=== PATIENT | male | born 1980 | race African-American/Black ===

== ENCOUNTER 2025-01-21 18:47 | Inpatient (IN) | payer OTHER, SELFPAY ==
[2025-01-21] VITALS (11 sets, daily range): BP systolic 154–225; BP diastolic 112–162; PULSE 75–95; RESP 16–20; TEMP 36.3; O2SAT 95–97; BMI 55.4
--- NOTE | ~2025-01-21 | XR_ITS ---
CHEST RADIOGRAPH, PA AND LATERAL CLINICAL HISTORY: cough, HTN . COMPARISON: None available TECHNIQUE: PA and lateral views of the chest. FINDINGS The cardiomediastinal silhouette is unremarkable. Increased interstitial markings are identified bilaterally, findings suggesting mild pulmonary vascul ar congestion. The lungs are otherwise clear. IMPRESSION: Mild pulmonary vascular congestion, without focal infiltrate or effusion. Reviewed, dictated and finalized at location A.
--- NOTE | ~2025-01-21 | US_ITS ---
EXAMINATION: US renal BI, US retroperitoneal duplex ltd DATE: 01/23/2025 09:30 INDICATION: Kidney injury. Criteria. Malignant hypertension. TECHNIQUE: 1. Multiple grayscale and color Doppler images of the kidneys were obtained. 2. Multiple grayscale and pulsed Doppler images of the aorta and renal arteries were obtained. COMPARISON: None. FINDINGS: Kidneys: The right kidney measures 11.5 x 4.7 x 5.9 cm. The left kidney measures 11.2 x 5.9 x 6.3 cm. The kidn eys demonstrate normal echogenicity. There is no hydronephrosis in either kidney. No stones identifi ed. The bladder is normal. Renal arteries/vascular: The aorta peak systolic velocity is 51 cm/s. The right renal artery peak systolic velocity is 26 cm/s in the proximal segment, 46 cm/s in the mid segment, and 36 cm/s in the distal segment. The left joanne al artery peak systolic velocity is 52 cm/s in the proximal segment, 20 cm/s in the mid segment, and 19 cm/s in the distal segment. IMPRESSION: 1. Normal kidneys with no hydronephrosis. 2. No Doppler evidence of renal artery stenosis. Reviewed, dictated and finalized at location A. IMPRESSION: 1. Normal kidneys with no hydronephrosis. 2. No Doppler evidence of renal artery stenosis.
--- NOTE | ~2025-01-21 | XR_ITS ---
EXAMINATION: XR chest 1V portable DATE: 01/23/2025 05:41 INDICATION: Shortness of breath. Pulmonary edema. TECHNIQUE: frontal view of the chest was obtained. COMPARISON: Chest radiograph dated 01/21/2025 FINDINGS: The lungs are clear with no focal airspace opacities, pulmonary edema, pleural effusion or pneumothor ax. The cardiomediastinal silhouette is normal. IMPRESSION: 1. No acute cardiopulmonary disease. Reviewed, dictated and finalized at location A.
--- OUTSIDE RECORDS SUMMARY | 2025-01-21 18:49 | XMS_ITS | Clinical Summary ---
Author Organization [facility] ([facility]) [employer] [place] Address [address] [place] [address] [place] [address] Care Team Providers Care Survey Project Manager Name Role Phone Unavailable Primary Care Provider Unavailabl e Active Problems No known active problems Family History Medical History Relation Name Comments Healthy Father Juan C Madison Healthy Mother Shweta Madison Healthy Sister 1 Renato Madison Healthy Sister 2 Clarita Madison Relation Name Status Comments Father Juan C Madison Mother Shweta Madison Sister 1 Renato Madison Sister 2 Clarita Madison Social History Tobacco Use Types Packs/Day Years Used Date Smoking Tobacco: Former Cigarettes 0.3 5 0 11/03/2009 - 11/03/2014 Tobacco Cessation:Counseling Given: Not Answered Alcohol Use Standard Drinks/Week Comments Yes 21 (1 standard drink = 0.6 oz pu re alcohol) Sex and Gender Information Value Date Recorded Sex Assigned at Not on file Legal Sex Male 3:44 PM CDT Gender Identity Not on file Sexual Orientation Not on file Last Filed Vital Signs Vital Sign Reading Time Taken Comments Blood Pressure 176/110 01/25/2023 1:19 PM CDT Pulse 60 11/29/2017 1:56 PM CDT Temperature - - Respiratory Rate - - Oxygen Saturation - - Inhaled Oxygen Concentration - - Weight 171.5 kg (378 lb) 01/25/2023 1:19 PM CDT Height 172.7 cm (5' 8) 01/25/2023 1:19 PM CDT Body Mass Index 57.47 01/25/2023 1:19 PM CDT Plan of Treatment Health Maintenance Due Date Last Done Comments DTAP/TDAP/TD VACCINES (1 - Tdap) 2001 HEPATITIS B VACCINES (1 of 3 - 19+ 3-dose series) 2001 INFLUENZA VACCINE (#1) 2024 HPV VACCINES Aged Out No longer eligi ble based on patient's age to complete this topic Insurance ALLEGIANCE OPEN ACCESS * Guarantor: [employer] Account Type Relation to Patient Date of Phone Billing Address Corporate Employer ATTN: KASI NEAL [address] [address]
--- NOTE | 2025-01-21 19:23 | ECG_ITS ---
Test Date: 2025-01-21 19:42:01 Measurements Intervals [place] Rate: 86 P: 34 VA: 200 QRS: -38 QRSD: 112 T: 143 QT: 356 QTc: 428 Interpretive Statements SINUS RHYTHM LEFT AXIS DEVIATION POSSIBLE LEFT ATRIAL ENLARGEMENT BORDERLINE AV CONDUCTION DELAY INTRAVENTRICULAR CONDUCTION DELAY BORDERLINE R WAVE PROGRESSION, ANTERIOR LEADS NONSPECIFIC ST & T-WAVE ABNORMALITY- LAT/HIGH LAT LEADS BASELINE ARTIFACT- I, III, AVR, AVL, V5 BORDERLINE ECG No previous ECG available for comparison Electronically Signed On 01-21-2025 20:17:19 CDT by Damion Bennett D.O.
[2025-01-21] MEDS: hydrALAZINE HCL 20 MG/ML VIAL 10 MG IV PUSH (19:39)
[2025-01-21 19:44] LABS: Basophils Absolute Auto 0.1 K/mm3 (0.0-0.1); Basophils Percent Auto 0.6 % (0.2-1.2); Eosinophils Absolute Auto 0.2 K/mm3 (0-0.3); Eosinophils Percent Auto 2.3 % (0-4.4); Hematocrit 40.5 % (42.0-52.0); Hemoglobin 12.4 g/dL (14.0-18.0); Lymphocytes Absolute Auto 2.39 K/mm3 (0.9-3.2); Lymphocytes Percent Auto 24.5 % (18.3-44.2); Mean Corpuscular HGB Conc 30.6 g/dl (32-36); Mean Corpuscular Hemoglobin 23.4 pg (26-34); Mean Corpuscular Volume 76.3 fl (80-100); Mean Platelet Volume 10.7 fl (7.4-10.4); Monocytes Absolute Auto 0.6 K/mm3 (0.1-0.6); Neutrophils Absolute Auto 6.4 K/mm3 (1.3-6.7); Neutrophils Percent Auto 65.6 % (45.5-73.1); Platelet Count Result 246 k/mm3 (150-375); Red Blood Count 5.31 M/mm3 (4.6-6.20); Red Cell Distribution Width 15.9 % (11.5-14.5); White Blood Count 9.8 K/mm3 (4.5-10.0)
[2025-01-21 19:56] LABS: Alanine Aminotransferase 17 U/L (6-50); Alkaline Phosphatase 82 U/L (38-126); Anion Gap 7 mmol/L (4-12); Aspartate Amino Transferase 28 U/L (17-59); Bilirubin,Total 0.8 mg/dL (0.2-1.3); Blood Urea Nitrogen 28 mg/dL (9-20); Calcium 9.2 mg/dL (8.4-10.2); Carbon Dioxide 28 mmol/L (22-30); Chloride 104 mmol/L (98-107); Estimated CRCL calculation 63 ml/min; Estimated Glomerular Filt Rate 34; Glucose 107 mg/dL (65-110); Magnesium 1.8 mg/dL (1.6-2.3); Potassium 3.7 mmol/L (3.4-5.0); Sodium 139 mmol/L (137-145); Total Protein 7.5 g/dL (6.3-8.2)
--- NOTE | 2025-01-21 19:58 | ED_ITS ---
HPI - General Adult General Chief complaint: Recheck/Abnormal Lab/Rx Stated complaint: coughing, HTN, BP 190/130 Time Seen by Provider: 01/21/25 19:05 History of Present Illness HPI narrative: Patient is a 44-year-old gentleman presents emergency department with chief complaint of cough and high blood pressure. Patient reports that he has been out of his blood pressure medicines for several weeks takes amlodipine and reports that his prescription had . Patient states that he was seen at urgent care and told that his blood pressure was extremely high and he should go to the emergency department patient did report that they gave him prescription for his blood pressure medicine and reports that he has had some shortness of breath. Patient denies chest pain denies peripheral edema Related Data Home Medications ?Medication ?Instructions ?Recorded ?Confirmed ?Last Taken ?Type amlodipine 10 mg tablet mg 01/21/25 Unknown History doxycycline hyclate 100 mg capsule mg 01/21/25 Unknown History Allergies Allergy/AdvReac Type Severity Reaction Status Date / Time No Known Allergies Allergy Verified 01/21/25 19:31 Review of Systems 2 Review of Systems: A 10 system review of systems was completed on the patient and is negative except for what is stated in the HPI. Nursing and ancillary documentation was reviewed. Exam 2 Narrative: GENERAL: Well-appearing, well-nourished, and in no acute distress. Morbidly obese HEAD: Normocephalic, atraumatic. EYES: PERRLA and EOMI. ENT: Nares clear, no rhinorrhea or epistaxis. Mucous membranes moist. NECK: Supple. CHEST: Clear to auscultation. No respiratory distress. HEART: Regular rate and rhythm. No murmur heard. Normal peripheral pulses. ABDOMEN: Soft, nontender, nondistended, normal active bowel sounds. EXTREMITIES: Normal range of motion. No edema. SKIN: Warm, dry, no rash. NEURO: No focal deficits. Alert and oriented x3. PSYCH: Normal mood and affect. Course Vital Signs Vital signs: Vital Signs Temperature 36.3 C L 01/21/25 18:50 Pulse Rate 95 01/21/25 18:50 Respiratory Rate 16 01/21/25 18:50 Blood Pressure 154/112 H 01/21/25 18:50 Pulse Oximetry 96 01/21/25 18:50 Oxygen Delivery Room Air 01/21/25 18:50 Temperature 36.3 C L 01/21/25 18:50 Pulse Rate 77 01/21/25 21:39 Respiratory Rate 20 01/21/25 21:39 Blood Pressure 189/126 H 01/21/25 21:39 Pulse Oximetry 95 01/21/25 21:39 Oxygen Delivery Room Air 01/21/25 18:50 Medical Decision Making Vital Signs Vital Signs: Vital Signs Temperature 36.3 C L 01/21/25 18:50 Pulse Rate 95 01/21/25 18:50 Respiratory Rate 16 01/21/25 18:50 Blood Pressure 154/112 H 01/21/25 18:50 Pulse Oximetry 96 01/21/25 18:50 Oxygen Delivery Room Air 01/21/25 18:50 Temperature 36.3 C L 01/21/25 18:50 Pulse Rate 77 01/21/25 21:39 Respiratory Rate 20 01/21/25 21:39 Blood Pressure 189/126 H 01/21/25 21:39 Pulse Oximetry 95 01/21/25 21:39 Oxygen Delivery Room Air 01/21/25 18:50 Lab Data 01/21/25 19:37 01/21/25 19:37 Labs: Lab Results 01/21/25 01/21/25 Range/Units 19:37 20:28 WBC 9.8 (4.5-10.0) K/mm3 RBC 5.31 (4.6-6.20) M/mm3 Hgb 12.4 L (14.0-18.0) g/dL Hct 40.5 L (42.0-52.0) % MCV 76.3 L (80-100) fl MCH 23.4 L (26-34) pg MCHC 30.6 L (32-36) g/dl RDW 15.9 H (11.5-14.5) % Plt Count 246 (150-375) k/mm3 MPV 10.7 H (7.4-10.4) fl Immature Gran % (Auto) 1.0 H (0-0.5) % Neut % (Auto) 65.6 (45.5-73.1) % Lymph % (Auto) 24.5 (18.3-44.2) % Woodruff % (Auto) 6.0 (2.6-8.5) % Eos % (Auto) 2.3 (0-4.4) % Baso % (Auto) 0.6 (0.2-1.2) % Lymph # (Auto) 2.39 (0.9-3.2) K/mm3 Woodruff # (Auto) 0.6 (0.1-0.6) K/mm3 Eos # (Auto) 0.2 (0-0.3) K/mm3 Baso # (Auto) 0.1 (0.0-0.1) K/mm3 Abs Immat Gran (auto) 0.10 H (0.00-0.031) K/mm3 Absolute Neuts (auto) 6.4 (1.3-6.7) K/mm3 Absolute Nucleated RBC 0.000 (0.0-0.012) K/mm3 Nucleated RBC % 0.0 (0.0-0.2) % Sodium 139 (137-145) mmol/L Potassium 3.7 (3.4-5.0) mmol/L Chloride 104 (98-107) mmol/L Carbon Dioxide 28 (22-30) mmol/L Anion Gap 7 (4-12) mmol/L BUN 28 H (9-20) mg/dL Creatinine 2.12 H (0.7-1.3) mg/dL Estim Creat Clear Calc 63 ml/min Estimated GFR 34 L (59 - ) Glucose 107 (65-110) mg/dL Calcium 9.2 (8.4-10.2) mg/dL Magnesium 1.8 (1.6-2.3) mg/dL Total Bilirubin 0.8 (0.2-1.3) mg/dL AST 28 (17-59) U/L ALT 17 (6-50) U/L Alkaline Phosphatase 82 (38-126) U/L Troponin I 0.100 H* (0.000-0.034) ng/mL NT-Pro-B Natriuret Pep 4110 H (19.9-100) pg/mL Total Protein 7.5 (6.3-8.2) g/dL Albumin 4.0 (3.5-5.1) g/dL Urine Color Yellow (Yellow) Urine Appearance Clear (Clear) Urine pH 6.0 (5.0-9.0) Ur Specific [place] 1.022 (1.001-1.035) Urine Protein 3+ H (Negative) mg/dL Urine Glucose (UA) Negative (Negative) mg/dL Urine Ketones Negative (Negative) mg/dL Ur Blood (Man) Negative (Negative) Urine Nitrate Negative (Negative) Urine Bilirubin Negative (Negative) Urine Urobilinogen 1.0 (<2.0) mg/dL Leukocyte Esterase Rfl Negative (Negative) CATHERINE/UL Urine RBC 0-2 (0-2) /hpf Urine WBC 0-5 (0-3) /hpf Ur Squamous Epith Cells None seen (Few) /hpf Urine Bacteria None seen /hpf Urine Casts 0-2 Influenza A (RT-PCR) Negative (Negative) Influenza B (RT-PCR) Negative (Negative) RSV (RT-PCR) Negative (Negative) SARS-CoV-2 RNA (RT-PCR) Negative (Negative) Critical Care Time Critical Care Time Critical Care Time: Yes Total Critical Care Time: 35 Discharge Plan Discharge Clinical Impression: Hypertension, Renal insufficiency, Elevated troponin Patient Disposition: Still a Patient Condition: Stable Patient Language: Danish Prescriptions: No Action doxycycline hyclate 100 mg capsule amlodipine 10 mg tablet Follow-up/Referrals: PHYSICIAN NOT ON STAFF,NONSTAFF [Non-Staff] - Time of Disposition: 22:37
[2025-01-21 20:11] LABS: NT Pro B Type Natriuretic Pept 4110 pg/mL (19.9-100)
[2025-01-21 20:20] LABS: Influenza A QL RT-PCR Negative (Negative); Influenza B QL RT-PCR Negative (Negative); RSV RNA, RT-PCR Negative (Negative); SARS-CoV-2 RNA PCR Negative (Negative)
[2025-01-21 20:36] LABS: Add Urine Microscopic? YES; Appearance Urine Clear (Clear); Bacteria Urine None Seen /hpf; Bilirubin Urine Negative (Negative); Blood Urine Negative (Negative); Color Urine Yellow (Yellow); Glucose Urine UA Negative (Negative); Ketones Urine Negative (Negative); Leukocyte Esterase Ur Negative LEU/UL (Negative); Nitrate Urine Negative (Negative); Non Pathogenic Casts 0-2; Protein Urine 3+ mg/dL (Negative); RBC Urine 0-2 /hpf (0-2); Specific Grav Ur 1.022 (1.001-1.035); Squamous Epithelial Cell Urine None Seen /hpf (Few); WBC Urine 0-5 /hpf (0-3)
--- OUTSIDE RECORDS SUMMARY | 2025-01-21 20:46 | XMS_ITS | Clinical Summary ---
Author Organization [facility] [employer] [place] Address [address] [place] [address] [place] [facility] [address] Care Team Providers Care Crochet Beader Name Role Phone Unavailable Primary Care Provider [...] Insurance ALLEGIANCE OPEN ACCESS * Guarantor: O[employer] Account Type Relation to Patient Date of Phone Billing Address Corporate Employer ATTN: KASI NEAL [address] [address]
[2025-01-21] MEDS: ASPIRIN 81 MG CHEWABLE TABLET 324 MG PO (21:11)
[2025-01-21] MEDS: NITROGLYCERIN OINTMENT 1 INCH DOSE TRANSDERM (21:28)
[2025-01-21] MEDS: FUROSEMIDE INJ 40 MG/4 ML VIAL IV PUSH (21:28)
[2025-01-21] MEDS: LABETALOL HCL INJ 100 MG/20 ML VIAL 20 MG IV PUSH (21:28)
--- NOTE | 2025-01-21 22:45 | ECG_ITS ---
Test Date: 2025-01-21 22:54:35 Measurements Intervals [place] Rate: 76 P: 28 HI: 204 QRS: -40 QRSD: 109 T: 145 QT: 385 QTc: 433 Interpretive Statements SINUS RHYTHM LEFT AXIS DEVIATION POSSIBLE LEFT ATRIAL ENLARGEMENT BORDERLINE AV CONDUCTION DELAY BORDERLINE R WAVE PROGRESSION, ANTERIOR LEADS MODERATE T-WAVE ABNORMALITY, CONSIDER ANTEROLAT/HIGH LAT ISCHEMIA BASELINE ARTIFACT- I, AVR, AVL ABNORMAL ECG Compared to ECG 01/21/2025 19:42:01 T-wave abnormality now present Possible ischemia now present Electronically Signed On 01-22-2025 07:08:54 CDT by Damion Bennett D.O.
[2025-01-21] MEDS: niCARdipine 20 MG/200 ML 20 MG/200 ML BAG 50 MG IV CONT (22:58)
[2025-01-21 23:23] LABS: Troponin I 0.111 ng/mL (0.000-0.034)
--- NOTE | 2025-01-21 23:32 | PC.NURSE ---
Report received from LARA Fonseca.
[2025-01-22] VITALS (29 sets, daily range): BP systolic 133–215; BP diastolic 70–187; PULSE 46–99; RESP 12–25; TEMP 36.3–36.8; O2SAT 92–100
--- NOTE | 2025-01-22 00:06 | ADMGEN ---
This patient, Charles Madison, was admitted to Intensive Care Unit-9 on 01/21/25 at 2347. Patient/family oriented to hospital policies and general routines including ID bracelet, bed and alarms, visiting hours, pain management, procedures, bathroom and other care routines, personal items, smoking policy, room service/diet, and visiting hours. Information on how to activate the Rapid Response Team has been discussed. Patient/Family are encouraged to report perceived risks to care and to ask questions if they do not understand what they are told or what they should do.
[2025-01-22 00:10] LABS: MRSA (PCR) NOT DETECTED (NOT DETECTE)
[2025-01-22] MEDS: NITROGLYCERIN OINTMENT 1 INCH DOSE TRANSDERM (00:36)
--- NOTE | 2025-01-22 01:25 | PM.IMHP ---
H&P: HPI History of Present Illness Date/Time: 01/22/25 01:25 Chief Complaint: Cough and elevated blood pressure at [facility] Narrative: 44-year-old male with a past medical history of morbid obesity, essential hypertension and nonadherence to medication therapy who presented to the ER from [facility] for evaluation of dry cough and markedly elevated blood pressure at urgent care. The patient reports that he has been out of medications for ?a few weeks?. On review the patient's external medication records from pharmacy the patient has not had refill of his metoprolol, losartan, Lasix or amlodipine since March 26, 2024 at which time he had a 30 day supply filled. On arrival to the ER the patient's blood pressures were 217/150s. Patient denies any chest pain or lower extremity swelling. He has been having dyspnea on exertion and orthopnea. He he also reports paroxysmal nocturnal dyspnea and a dry cough at all started about 6 weeks ago. He does snore quite loudly and since admission to the ICU is been noted to have episodes of hypoxia with sleep. He has noticed that his abdomen is felt tighter than usual. He has had a dry nonproductive cough. He reports that his cough dyspnea and orthopnea all started about the same time. He reports that his losartan was discontinued shortly after was started due to his renal function. He reports that 1 of the other blood pressure medications was stopped due to leg swelling. She he states that even with being on multiple blood pressure medications in the past his blood pressures are usually still high. He stated that he does not check his blood pressures all that frequently but when he does check them as they are usually in the 180s systolic range. He does not weigh is self frequently but his weight is at least up 10 lb between his last to episodes weight checks. He is relatively sedentary at baseline. In the ER patient received hydralazine with no real improvement in his blood pressure. He subsequently received 40 mg IV Lasix, labetalol 20 mg IV push and transdermal nitroglycerin 1 in with improvement in blood pressures to 199 over 133. Subsequently patient was placed on a Cardene drip and admitted to ICU for hypertensive urgency given the fact that the patient had evidence of acute versus acute on chronic kidney injury, elevated troponin and pulmonary edema suggesting decompensated heart failure. Review of Systems Review of Systems: 12 systems were reviewed with pertinent positives and negatives per HPI. Except as documented in the HPI, all other systems were reviewed and are negative. [facility] Past Medical History Medical History (Updated 01/22/25 @ 01:44 by Sydni Palacios DO) Hyperlipidemia Gout Obesity, morbid, BMI 50 or higher Essential hypertension Surgical History Surgical History (Updated 01/22/25 @ 01:38 by Sydni Palacios DO) History of circumcision At age 12 Family History Family History Other Breast cancer Grandparent Cancer Social History Social History (Updated 01/22/25 @ 03:56 by Sydni Palacios DO) Social History: He lives with his Christiane. They have been for about 7 years but have been together for about 15 years. He briefly smoked for about 5 years 1 pack per week. His he denies any illicit substance use. He drinks about 4-5 alcoholic beverages on the weekend. He does not have any children. 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 Code status: Full code Surrogate decision maker: Christiane () Smoking status: Former smoker Second hand tobacco smoke exposure: Yes Alcohol intake: current Drinks per week: 5 Substance use: never Substance use type: does not use Do You Feel Safe in your Home?: Yes Lack of Transportation: YES Lack of Food: Sometimes True Current Housing: I Have Housing Concerned About Future Housing: No Difficulty Paying Gas/Electric Bills: No Difficulty Paying for Meds: No Currently Unemployed: No Education: Trade/Vocational Certificate Difficulty w/ Childcare or Family Care: No Spiritual care concerns: No Comments He reports that his parents and his 2 sisters are healthy. Meds Home Medications and Allergies Home Medications ?Medication ?Instructions ?Recorded ?Confirmed ?Type amlodipine 10 mg tablet mg 01/21/25 History doxycycline hyclate 100 mg capsule mg 01/21/25 History rosuvastatin 10 mg tablet mg 01/22/25 History Allergies Allergy/AdvReac Type Severity Reaction Status Date / Time No Known Allergies Allergy Verified 01/21/25 19:31 Vital Signs Vital Signs - 24 hr 01/21/25 18:50 01/21/25 19:26 01/21/25 19:48 Temperature 97.4 F L Pulse Rate 95 83 Respiratory Rate 16 16 Blood Pressure 154/112 H 217/153 H Pulse Oximetry 96 96 96 Oxygen Delivery Room Air 01/21/25 20:24 01/21/25 21:10 01/21/25 21:39 Temperature Pulse Rate 86 77 Respiratory Rate 20 20 Blood Pressure 215/162 H 225/145 H 189/126 H Pulse Oximetry 95 95 Oxygen Delivery 01/21/25 21:45 01/21/25 22:06 01/21/25 22:30 Temperature Pulse Rate 79 80 78 Respiratory Rate 18 19 16 Blood Pressure 194/138 H 196/138 H 180/141 H Pulse Oximetry 96 97 96 Oxygen Delivery 01/21/25 22:58 01/21/25 23:32 01/22/25 00:00 Temperature Pulse Rate 81 75 89 Respiratory Rate 16 Blood Pressure 199/133 H 188/127 H 173/114 H Pulse Oximetry 97 Oxygen Delivery 01/22/25 00:00 01/22/25 00:00 01/22/25 00:00 Temperature 98.2 F Pulse Rate 63 63 63 Respiratory Rate 12 12 Blood Pressure 173/114 H Pulse Oximetry 94 94 Oxygen Delivery Room Air 01/22/25 00:35 01/22/25 00:45 01/22/25 01:00 Temperature Pulse Rate 78 86 99 Respiratory Rate Blood Pressure 215/187 H 183/115 H 200/140 H Pulse Oximetry Oxygen Delivery 01/22/25 01:15 Temperature Pulse Rate 90 Respiratory Rate Blood Pressure 166/95 H Pulse Oximetry Oxygen Delivery Exam Narrative: Weight 165.3 kg BMI 55.4 Const: Other: No acute distress, morbidly obese, appears stated age HENMT: Other: Mucous membranes are moist, no oral pharyngeal erythema, last for ASA Eyes: Other: Pupils are equal and reactive, mild scleral icterus, no conjunctival pallor Neck: Other: No JVD, mild thyromegaly, large neck circumference Resp: Other: Crackles anterior lung green, no increased work of breathing Cardio: Other: Regular rate, regular rhythm, 2+ bilateral radial pedal pulses, no JVD, no murmur GI: Other: Soft, obese, normoactive bowel sounds, nontender Skin: Other: Tattoos covering both arms and is sleeve like fashion, no jaundice, no pallor Neuro: Other: Alert oriented x4, speech is clear, no facial asymmetry, no localizing neurologic deficits noted during the course of conversation Extrem: Other: No clubbing, cyanosis or edema Psych: Other: Pleasant and cooperative, appropriate mood and affect, fair judgment and insight H&P: Results Labs Labs: Laboratory Tests 01/21/25 19:37 01/21/25 19:37 01/21/25 01/21/25 01/21/25 19:37 20:28 22:53 WBC 9.8 RBC 5.31 Hgb 12.4 L Hct 40.5 L MCV 76.3 L MCH 23.4 L MCHC 30.6 L RDW 15.9 H Plt Count 246 MPV 10.7 H Immature Gran % (Auto) 1.0 H Neut % (Auto) 65.6 Lymph % (Auto) 24.5 Spencer % (Auto) 6.0 Eos % (Auto) 2.3 Baso % (Auto) 0.6 Lymph # (Auto) 2.39 Spencer # (Auto) 0.6 Eos # (Auto) 0.2 Baso # (Auto) 0.1 Abs Immat Gran (auto) 0.10 H Absolute Neuts (auto) 6.4 Absolute Nucleated RBC 0.000 Nucleated RBC % 0.0 Sodium 139 Potassium 3.7 Chloride 104 Carbon Dioxide 28 Anion Gap 7 BUN 28 H Creatinine 2.12 H Estim Creat Clear Calc 63 Estimated GFR 34 L Glucose 107 Calcium 9.2 Magnesium 1.8 Total Bilirubin 0.8 AST 28 ALT 17 Alkaline Phosphatase 82 Troponin I 0.100 H* 0.111 H* NT-Pro-B Natriuret Pep 4110 H Total Protein 7.5 Albumin 4.0 Urine Color Yellow Urine Appearance Clear Urine pH 6.0 Ur Specific [place] 1.022 Urine Protein 3+ H Urine Glucose (UA) Negative Urine Ketones Negative Ur Blood (Man) Negative Urine Nitrate Negative Urine Bilirubin Negative Urine Urobilinogen 1.0 Leukocyte Esterase Rfl Negative Urine RBC 0-2 Urine WBC 0-5 Ur Squamous Epith Cells None seen Urine Bacteria None seen Urine Casts 0-2 Nasal MRSA (PCR) Not detected Influenza A (RT-PCR) Negative Influenza B (RT-PCR) Negative RSV (RT-PCR) Negative SARS-CoV-2 RNA (RT-PCR) Negative Impressions Chest X-Ray 01/21/25 20:05 IMPRESSION: Mild pulmonary vascular congestion, without focal infiltrate or effusion. EKG: Normal sinus rhythm, possible left atrial enlargement, left axis deviation, moderate T-wave abnormality V3 through V6 consider anterior lateral ischemia, QTC 433, cardiology interpretation pending All imaging and EKGs personally reviewed and interpreted. And unless stated otherwise agree with radiologic and cardiology interpretation. Assessment and Plan Assessment and plan (1) Malignant hypertensive urgency: Code(s): I16.0 - Hypertensive urgency Status: Acute (2) Acute kidney injury: Code(s): N17.9 - Acute kidney failure, unspecified Status: Acute (3) Pulmonary vascular congestion: Code(s): R09.89 - Other specified symptoms and signs involving the circulatory and respiratory systems Status: Acute (4) Elevated troponin: Code(s): R79.89 - Other specified abnormal findings of blood chemistry Status: Acute (5) Proteinuria: Qualifiers: Proteinuria type: other Qualified Code(s): R80.8 - Other proteinuria Code(s): R80.9 - Proteinuria, unspecified Status: Acute (6) Obesity, morbid, BMI 50 or higher: Code(s): E66.01 - Morbid (severe) obesity due to excess calories Status: Acute Plan Patient has hypertensive urgency with associated pulmonary edema, cough and shortness of breath. This is likely due to chronically uncontrolled hypertension with increased hypertensive urgency with acute decompensation. Patient responded somewhat to nitroglycerin and IV Lopressor. Will continue transdermal nitroglycerin 1 in and will treat nitro associated headache with Tylenol. Will obtain echocardiogram to further evaluate cardiac structure and function. Will continue Lasix IV and monitor strict I&O's. Will check echocardiogram to further evaluate cardiac structure and function. Patient has been admitted to ICU for Cardene drip. Will aim to bring the patient's blood pressure down into his usual range of 180 systolic initially. Will start p.o. Norvasc 10 mg daily and Coreg 25 mg p.o. b.i.d. Systems Program Manager has been consulted. Patient does have elevated troponin but repeat troponin demonstrates flat profile again suggesting more of a chronic strain pattern in acute cardiac ischemia less likely. Although the patient does have evidence of anterior lateral T-wave abnormalities suggesting possible ischemia. Will place patient on 10 mg p.o. Norvasc daily as well as p.o. metoprolol. Will hold off on adding losartan until we can re-evaluate the patient's renal function. He does have some evidence of kidney injury. It is unclear if this is acute versus chronic. I am leaning more towards patient having some chronic kidney disease from uncontrolled hypertension given that his electrolytes are otherwise stable and the 3+ proteinuria in his urine. Will obtain renal ultrasound and monitor urine output closely. Given morbid obesity will screen for obstructive sleep apnea with [facility] as untreated obstructive sleep apnea could exacerbate the patient's hypertension and cardiac strain. Will check fasting lipid panel. Will repeat CBC and electrolyte panel with a.m. labs. Will trend troponins. Will start the patient on 81 mg aspirin daily. The importance of compliance with antihypertensive medications was discussed in great detail with the patient. Patient verbalized understanding. 45 minute spent in critical care activities. Due to a high probability of clinically significant, life threatening deterioration, the patient required my highest level of preparedness to intervene emergently and I personally spent this critical care time directly and personally managing the patient. This critical care time included obtaining a history; examining the patient; pulse oximetry; ordering and review of studies; arranging urgent treatment with development of a management plan; evaluation of patient's response to treatment; frequent reassessment; and discussions with other providers. It was exclusive of separately billable procedures and treating other patients and teaching time. Please see Assessment and Plan section and the rest of the note for further information on patient assessment and treatment.. MEDICAL DECISION MAKING NARRATIVE -Spoke with the ED provider in detail regarding patient's evaluation, workup and management -Patient seen and examined at bedside -Collaborated with patient's nurse at the bedside in detail and addressed all concerns -Labs, electrolytes, radiology, investigations and test results reviewed -ED/Consult/Nursing/Ancilliary notes on the chart reviewed and appreciated -Spoke with patient/family at the bedside and answered all questions. Quality VTE Prophylaxis VTE prophylaxis: pharmacologic ordered (Lovenox 40 mg subQ q.12 hours (twice daily dosing due to BMI greater than 40)) Hospitalist [facility] Advance Care Plan I have confirmed that the patient's Advanced Care Plan is present, code status is documented, or surrogate decision maker is listed in patient medical record.: Yes Medication Reconciliation I have utilized all available resources to obtain, update and review the patients current medications (includes all prescriptions, OTC, herbals, cannabis, and nutritional supplements).: Yes
--- OUTSIDE RECORDS SUMMARY | 2025-01-22 01:27 | XMS_ITS | Clinical Summary ---
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
[2025-01-22] MEDS: niCARdipine 20 MG/200 ML 20 MG/200 ML BAG 75 MG IV CONT (01:45)
[2025-01-22 03:24] LABS: Cholesterol 233 mg/dL (0-200); HDL Direct 30 mg/dL; LDL Cholesterol Direct 144 mg/dL; Triglycerides 141 mg/dL (<150); Troponin I 0.094 ng/mL (0.000-0.034)
[2025-01-22 04:07] LABS: Basophils Absolute Auto 0.1 K/mm3 (0.0-0.1); Basophils Percent Auto 0.6 % (0.2-1.2); Eosinophils Absolute Auto 0.3 K/mm3 (0-0.3); Eosinophils Percent Auto 2.7 % (0-4.4); Hemoglobin 13.3 g/dL (14.0-18.0); Immature Granulocyte Absolute 0.09 K/mm3 (0.00-0.031); Immature Granulocyte Percent A 0.8 % (0-0.5); Lymphocytes Absolute Auto 2.78 K/mm3 (0.9-3.2); Lymphocytes Percent Auto 24.9 % (18.3-44.2); Mean Corpuscular HGB Conc 30.9 g/dl (32-36); Mean Corpuscular Hemoglobin 23.4 pg (26-34); Mean Corpuscular Volume 75.7 fl (80-100); Mean Platelet Volume 11.1 fl (7.4-10.4); Monocytes Absolute Auto 0.8 K/mm3 (0.1-0.6); Monocytes Percent Auto 6.8 % (2.6-8.5); Neutrophils Absolute Auto 7.2 K/mm3 (1.3-6.7); Neutrophils Percent Auto 64.2 % (45.5-73.1); Platelet Count Result 263 k/mm3 (150-375); Red Blood Count 5.68 M/mm3 (4.6-6.20); Red Cell Distribution Width 16.9 % (11.5-14.5); White Blood Count 11.2 K/mm3 (4.5-10.0)
[2025-01-22 05:48] LABS: Alanine Aminotransferase 17 U/L (6-50); Albumin Level 4.1 g/dL (3.5-5.1); Alkaline Phosphatase 94 U/L (38-126); Anion Gap 11 mmol/L (4-12); Aspartate Amino Transferase 26 U/L (17-59); Bilirubin,Total 0.8 mg/dL (0.2-1.3); Blood Urea Nitrogen 26 mg/dL (9-20); Calcium 9.4 mg/dL (8.4-10.2); Carbon Dioxide 28 mmol/L (22-30); Chloride 103 mmol/L (98-107); Estimated CRCL calculation 59 ml/min; Estimated Glomerular Filt Rate 32; Glucose 107 mg/dL (65-110); Potassium 3.3 mmol/L (3.4-5.0); Sodium 142 mmol/L (137-145); Total Protein 8.1 g/dL (6.3-8.2)
--- NOTE | 2025-01-22 06:00 | ECHO_ITS ---
Patient Info Name: Charles Madison Age: 44 years : 1980 Gender: Male Ht: 68 in Wt: 368 lbs BSA: 2.93 m2 HR: 65 bpm BP: 179 / 137 mmHg Heart Rhythm: Sinus Rhythm Technical Quality: Fair Exam Date: 01/22/2025 9:25 AM Patient Status: I Admit Date: 01/22/2025 Exam Type: CA echo dop color flow w con Complete two-dimensional, color flow and Doppler transthoracic echocardiogram is performed with contrast to opacify the left ventricle and to improve the deliniation of the left ventricle endocardial borders. Staff Referring Physician: Sydin Palacios DO Project Product Manager: Margret Ortiz Attending Provider: Sydni Palacios DO Contrast/Agitated Saline Contrast/Ag. Saline: Definity Amount: 2.00 ml Administered By: Margret Ortiz Existing IV Access: Yes IV Access Condition: patent with no signs of infiltration Summary 1. Technically challenging exam because of obesity, definity contrast utilized. 2. Concentric LVH with mild LV enlargement and mildly reduced systolic function. 3. Grade 2 diastolic noncompliance. 4. Moderate left atrial enlargement. 5. Trivial aortic valve regurgitation. Left Ventricle Left ventricular chamber dimension is mildly enlarged. Left ventricular systolic function is mildly reduced, estimated at 45-50. There is moderate concentric increased left ventricular wall thickness. The left ventricular diastolic function is grade II diastolic dysfunction. Right Ventricle Right ventricular chamber dimension is normal. Left Atria Left atrial chamber dimension is moderately enlarged. Right Atria Right atrial chamber dimension is normal. Aortic Valve The aortic valve is normal. There is trace aortic valve regurgitation. Pulmonic Valve The pulmonic valve is not well visualized. Mitral Valve The mitral valve has normal leaflets. Tricuspid Valve The tricuspid valve leaflets are normal. Pericardium/Pleural The pericardium appears normal. Aorta The aortic root size at the sinus of Valsalva is normal. Left Ventricular Outflow Tract Name Value Normal LVOT 2D LVOT Diameter 2.5 cm LVOT Doppler LVOT Peak Velocity 107 cm/s LVOT Peak Gradient 5 mmHg LVOT Mean Gradient 3 mmHg LVOT VTI 19 cm LVOT Stroke Volume 94 ml LVOT CO 6.1 l/min LVOT CI 2.1 l/min/m2 Pulmonic Valve Name Value Normal RVOT Doppler RVOT Peak Velocity 49 cm/s RVOT Peak Gradient 1 mmHg PV Doppler PV Peak Velocity 134 cm/s PV Peak Gradient 7 mmHg Mitral Valve Name Value Normal MV Diastolic Function MV E Peak Velocity 75 cm/s MV A Peak Velocity 72 cm/s MV E/A 1.0 MV Decel Time (PW) 190 ms MV Annular TDI MV E/e' (Septal) 14.2 MV E/e' (Lateral) 13.7 MV E/e' (Average) 13.9 Aortic Valve Name Value Normal AV Doppler AV Peak Velocity 165 cm/s AV Peak Gradient 11 mmHg AV Area (Cont Eq Toñito) 3.2 cm2 AV DI (Toñito) 0.65 AV Regurgitation 2D LVOT Area 4.9 cm2 Ventricles Name Value Normal LV Dimensions 2D/MM IVS Diastolic Thickness (2D) 1.4 cm 0.6-1.0 LVID Diastole (2D) 5.6 cm 4.2-5.8 LVIW Diastolic Thickness (2D) 1.7 cm 0.6-1.0 LVID Systole (2D) 4.1 cm 2.5-4.0 LVOT Diameter 2.5 cm LV Mass (2D Cubed) 401.20 g 88.00-224.00 LV Mass Index (2D Cubed) 137 g/m2 49-115 Relative Wall Thickness (2D) 0.61 <=0.42 LV Fractional Shortening/Ejection Fraction 2D/MM LV Fractional Shortening (2D) 28 % 25-43 LV EF (2D Teichholz) 53 % LV Diastolic Volume (4C MOD) 177 ml LV EF (4C MOD) 60 % LV Diastolic Volume (2C MOD) 190 ml LV EF (2C MOD) 53 % LV Diastolic Volume (BP MOD) 186 ml 62-150 LV Diastolic Volume Index (BP MOD) 64 ml/m2 34-74 LV Systolic Volume (BP MOD) 81 ml 21-61 LV Systolic Volume Index (BP MOD) 27 ml/m2 11-31 LV EF (BP MOD) 57 % 52-72 LV Diastolic Length (4C) 10.1 cm LV Systolic Length (4C) 8.4 cm LV Stroke Volume (4C MOD) 105 ml Atria Name Value Normal LA Dimensions LA Volume (4C A-L) 93 ml LA Volume (BP A-L) 107 ml RA Dimensions RA Systolic Major Brantley Length (4C) 5.6 cm 2.1-2.7 RA Area (4C) 19.4 cm2 <=18.0 Report Signatures
[2025-01-22] MEDS: amLODIPine BESYLATE 10 MG TABLET PO (08:24)
[2025-01-22] MEDS: ASPIRIN 81 MG CHEWABLE TABLET PO (08:24)
[2025-01-22] MEDS: carvediloL 25 MG TABLET PO ×2 (08:24→20:25)
[2025-01-22] MEDS: FUROSEMIDE INJ 40 MG/4 ML VIAL IV PUSH ×2 (08:25→17:40)
[2025-01-22] MEDS: ENOXAPARIN 40 MG/0.4 ML SYRINGE SUB-Q ×2 (08:25→20:26)
[2025-01-22] MEDS: ACETAMINOPHEN 325 MG TABLET 650 MG PO (08:25)
[2025-01-22] MEDS: POTASSIUM CHLORIDE 20 MEQ ER TABLET 40 MEQ PO (08:38)
[2025-01-22] MEDS: LABETALOL HCL INJ 100 MG/20 ML VIAL 20 MG IV PUSH (08:50)
--- NOTE | 2025-01-22 08:52 | WPDCNINT ---
Assessment and Plan Assessment and plan (1) Hypertensive emergency: Code(s): I16.1 - Hypertensive emergency Status: Acute Assessment and Plan: Patient presented with elevated blood pressure and was started on nicardipine infusion. Pressure has improved to a point that nicardipine infusion was discontinued. Patient has been started on p.o. Coreg, Norvasc He has also been started on IV Lasix which can eventually transition to HCTZ later in the course of the hospitalization I will order p.r.n. labetalol and hydralazine to keep blood pressure close to 180 systolic (2) Elevated troponin: Code(s): R79.89 - Other specified abnormal findings of blood chemistry Status: Acute Assessment and Plan: Mildly elevated troponin in setting of uncontrolled blood pressure and elevated creatinine. Patient denies any chest pain but has abnormal EKG Serial troponin has not trended down Consult cardiology Check echocardiogram Add aspirin (3) Obesity, morbid, BMI 50 or higher: Code(s): E66.01 - Morbid (severe) obesity due to excess calories Status: Acute Assessment and Plan: Patient is morbidly obese and was counseled for weight loss (4) Elevated serum creatinine: Code(s): R79.89 - Other specified abnormal findings of blood chemistry Status: Acute Assessment and Plan: Patient states that he has history of abnormal creatinine level but does not on the creatinine Presented with creatinine of 2.25 which may be chronic kidney disease or BAL over chronic kidney disease Check CK level and renal ultrasound Consult nephrology Urine electrolytes will be inaccurate as patient has received diuretics Monitor urine output electrolytes and creatinine (5) Congestive heart failure: Code(s): I50.9 - Heart failure, unspecified Status: Acute Assessment and Plan: Patient exhibiting symptoms and signs of congestive heart failure likely from uncontrolled hypertension Check echocardiogram IV Lasix Consult cardiology Plan DVT prophylaxis -Lovenox Nutrition -heart healthy Code Status - Full Code Total Critical Care Time - 30 minutes Due to a high probability of clinically significant, life threatening deterioration, the patient required my highest level of preparedness to intervene emergently and I personally spent this critical care time directly and personally managing the patient. This critical care time included obtaining a history; examining the patient; pulse oximetry; ordering and review of studies; arranging urgent treatment with development of a management plan; evaluation of patient's response to treatment; frequent reassessment; and discussions with other providers. It was exclusive of separately billable procedures and treating other patients and teaching time. Please see Assessment and Plan section and the rest of the note for further information on patient assessment and treatment [employer] Consult Note Consult date: 01/22/25 Reason for consult: Hypertensive emergency HPI: Charles Madison is a 44 year old male male with past medical history of hypertension, morbid obesity, chronic kidney disease and noncompliance presented to ER with chief complaint of dry cough and chest congestion along with shortness of breath gradually worsening over last few weeks to months. Patient states that he has not taken any medications since last March and has not seen any physician in the office. He states over last few weeks to months he has developed dry cough and unable to cough anything out. No fever. He has had feeling of chest congestion and shortness of breath on minimal exertion. He also admits to orthopnea and PND. He states he sleeps with head and of the bed elevated. He has noticed minimal swelling in the legs. He states that minimal exertion least 2 shortness of breath. He denies any chest pain abdominal pain nausea vomiting or diarrhea. He denies any dysuria hematuria but states that he has to get up 6-7 times at night to go to bathroom to pee. Patient states that over last few blood checks he was told that his kidney function was abnormal although he does not know the exact number.. He also states that his sometimes he sees streaks of bright red blood on his stool. Review of system was also positive for snoring but he has never been tested for sleep apnea. All other systems were reviewed and were negative. In ER patient was found to be having elevated blood pressure was systolic 217. He was given several IV pushes but blood pressure remained elevated hence he was started on nicardipine infusion and admitted to ICU. He also had elevated creatinine Review of Systems Review of Systems: All systems reviewed & are unremarkable except as noted in HPI and below (HPI) [facility] Past Medical History Medical History Hyperlipidemia Gout Obesity, morbid, BMI 50 or higher Essential hypertension Surgical History Surgical History History of circumcision At age 12 Family History Family History Other Breast cancer Grandparent Cancer Social History Social History Social History: He lives with his Christiane. They have been for about 7 years but have been together for about 15 years. He briefly smoked for about 5 years 1 pack per week. His he denies any illicit substance use. He drinks about 4-5 alcoholic beverages on the weekend. He does not have any children. 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 Code status: Full code Surrogate decision maker: Christiane () Smoking status: Former smoker Second hand tobacco smoke exposure: Yes Alcohol intake: current Drinks per week: 5 Substance use: never Substance use type: does not use Do You Feel Safe in your Home?: Yes Lack of Transportation: YES Lack of Food: Sometimes True Current Housing: I Have Housing Concerned About Future Housing: No Difficulty Paying Gas/Electric Bills: No Difficulty Paying for Meds: No Currently Unemployed: No Education: Trade/Vocational Certificate Difficulty w/ Childcare or Family Care: No Spiritual care concerns: No Meds Home Medications and Allergies Home Medications ?Medication ?Instructions ?Recorded ?Confirmed ?Type amlodipine 10 mg tablet 10 mg PO DAILY 01/21/25 01/22/25 History doxycycline hyclate 100 mg capsule 100 mg PO Q12H 01/21/25 01/22/25 History rosuvastatin 10 mg tablet 10 mg PO DAILY 01/22/25 01/22/25 History Allergies Allergy/AdvReac Type Severity Reaction Status Date / Time No Known Allergies Allergy Verified 01/21/25 19:31 Vital Signs Vital Signs - 24 hr 01/21/25 18:50 01/21/25 19:26 01/21/25 19:48 Temperature 36.3 C L Pulse Rate 95 83 Respiratory Rate 16 16 Blood Pressure 154/112 H 217/153 H Pulse Oximetry 96 96 96 Oxygen Delivery Room Air 01/21/25 20:24 01/21/25 21:10 01/21/25 21:39 Temperature Pulse Rate 86 77 Respiratory Rate 20 20 Blood Pressure 215/162 H 225/145 H 189/126 H Pulse Oximetry 95 95 Oxygen Delivery 01/21/25 21:45 01/21/25 22:06 01/21/25 22:30 Temperature Pulse Rate 79 80 78 Respiratory Rate 18 19 16 Blood Pressure 194/138 H 196/138 H 180/141 H Pulse Oximetry 96 97 96 Oxygen Delivery 01/21/25 22:58 01/21/25 23:32 01/22/25 00:00 Temperature Pulse Rate 81 75 89 Respiratory Rate 16 Blood Pressure 199/133 H 188/127 H 173/114 H Pulse Oximetry 97 Oxygen Delivery 01/22/25 00:00 01/22/25 00:00 01/22/25 00:00 Temperature 36.8 C Pulse Rate 63 63 63 Respiratory Rate 12 12 Blood Pressure 173/114 H Pulse Oximetry 94 94 Oxygen Delivery Room Air 01/22/25 00:35 01/22/25 00:45 01/22/25 01:00 Temperature Pulse Rate 78 86 99 Respiratory Rate Blood Pressure 215/187 H 183/115 H 200/140 H Pulse Oximetry Oxygen Delivery 01/22/25 01:15 01/22/25 01:31 01/22/25 01:45 Temperature Pulse Rate 90 89 92 Respiratory Rate Blood Pressure 166/95 H 161/92 H 133/105 H Pulse Oximetry Oxygen Delivery 01/22/25 01:46 01/22/25 02:00 01/22/25 02:00 Temperature Pulse Rate 92 78 78 Respiratory Rate 25 H Blood Pressure 133/105 H 169/106 H 169/106 H Pulse Oximetry 94 Oxygen Delivery 01/22/25 02:00 01/22/25 02:15 01/22/25 02:30 Temperature Pulse Rate 78 79 94 Respiratory Rate Blood Pressure 177/139 H 167/70 H Pulse Oximetry Oxygen Delivery 01/22/25 04:00 01/22/25 04:00 01/22/25 04:00 Temperature 36.8 C Pulse Rate 91 64 64 Respiratory Rate 16 Blood Pressure 179/137 H 179/137 H Pulse Oximetry 98 Oxygen Delivery 01/22/25 04:00 01/22/25 06:00 01/22/25 06:00 Temperature Pulse Rate 64 64 64 Respiratory Rate 16 Blood Pressure 175/151 H Pulse Oximetry 98 Oxygen Delivery Room Air 01/22/25 07:40 01/22/25 08:00 01/22/25 08:24 Temperature 36.4 C L Pulse Rate 59 L 76 Respiratory Rate 20 Blood Pressure 188/108 H Pulse Oximetry 100 100 Oxygen Delivery Room Air Exam Narrative: General: Pt is alert awake and in NAD Lungs/Chest: Trachea central Clear BS B/L, No crackles or wheezing. Breath sounds are decreased at bases Cardiac: RRR. Normal S1 S2. No murmurs Circulation: Pedal pulses are intact and symmetrical. Abdomen: Morbidly obese Normal bowel sounds.. Soft. NT. ND. Extremities: Mild pitting edema in both legs : Clay in place Neurologic: Follows commands. Moves all 4 extremities PERRL AO x3 Skin: No Rash Results Labs 01/22/25 03:59 01/22/25 03:59 Labs: Impressions Chest X-Ray 01/21/25 20:05 IMPRESSION: Mild pulmonary vascular congestion, without focal infiltrate or effusion. Short CBC 01/21/25 01/22/25 Range/Units 19:37 03:59 WBC 9.8 11.2 H (4.5-10.0) K/mm3 Hgb 12.4 L 13.3 L (14.0-18.0) g/dL Hct 40.5 L 43.0 (42.0-52.0) % Plt Count 246 263 (150-375) k/mm3 BMP 01/21/25 01/22/25 19:37 03:59 Sodium 139 142 Potassium 3.7 3.3 L Chloride 104 103 Carbon Dioxide 28 28 BUN 28 H 26 H Creatinine 2.12 H 2.25 H Glucose 107 107 Calcium 9.2 9.4 Cardiac Enzymes 01/21/25 01/21/25 01/22/25 Range/Units 19:37 22:53 01:26 Troponin I 0.100 H* 0.111 H* 0.094 H* (0.000-0.034) ng/mL Liver Function 01/21/25 01/22/25 Range/Units 19:37 03:59 Total Bilirubin 0.8 0.8 (0.2-1.3) mg/dL AST 28 26 (17-59) U/L ALT 17 17 (6-50) U/L Alkaline Phosphatase 82 94 (38-126) U/L Albumin 4.0 4.1 (3.5-5.1) g/dL Urine 01/21/25 Range/Units 20:28 Urine Color Yellow (Yellow) Urine Appearance Clear (Clear) Urine pH 6.0 (5.0-9.0) Ur Specific [place] 1.022 (1.001-1.035) Urine Protein 3+ H (Negative) mg/dL Urine Glucose (UA) Negative (Negative) mg/dL ECG Interpretation: EKG showed sinus rhythm with left axis deviation and left atrial enlargement moderate T-wave abnormality Quality VTE Prophylaxis VTE prophylaxis: pharmacologic ordered Hospitalist MIPS Advance Care Plan I have confirmed that the patient's Advanced Care Plan is present, code status is documented, or surrogate decision maker is listed in patient medical record.: Yes Medication Reconciliation I have utilized all available resources to obtain, update and review the patients current medications (includes all prescriptions, OTC, herbals, cannabis, and nutritional supplements).: Yes
[2025-01-22] MEDS: PERFLUTREN LIPID MICROSPHERES 1.5 ML VIAL DILUTED TO 10 ML TOTAL VOLUME IV PUSH (09:45)
--- NOTE | 2025-01-22 10:04 | IVDEFINITY ---
Prior to administration of IV Definity the patient was educated on the risks and benefits of the imaging enhancing agent including potential adverse side effects. The patient verbalized understanding. Allergies were verified. No exclusion criteria were identified and at least one of the following inclusion criteria were met: 1) physician request, 2) patient technically difficult to image (per the [place] [employer] Echocardi[employer] guidelines of two or more segments not discernable within the apical view), or 3) questionable left ventricular function. ?
--- NOTE | 2025-01-22 10:17 | P.CONNP_ITS ---
Assessment and Plan Assessment and plan (1) Elevated serum creatinine: Code(s): R79.89 - Other specified abnormal findings of blood chemistry Status: Acute Assessment and Plan: * acute kidney injury on chronic kidney disease versus progression of chronic kidney disease?? * patient reports an abnormal creatinine ~ a year ago during a previous hospitalization.... * from review of his [facility] records, creatinine was 1.64mg/dl in March 2024 * creatinine 1.43mg/dl on January 2023 ([facility]) * given his poor BP control, I suspect a degree of CKD progression * follow-up on renal imaging and urine studies * follow trend of repeat labs and UOP (2) Hypertensive emergency: Code(s): I16.1 - Hypertensive emergency Status: Acute Assessment and Plan: * started on nicardipine infusion as unresponsive to IV push medications * BP has improved so that nicardipine infusion has beeb discontinued * started on oral Coreg and Norvasc * on IV Lasix due to evidence of volume overload on presentation as well... * wean off based on CXR results * PRN. labetalol and hydralazine to keep blood pressure close to 180 systolic * would aim to keep systolic BP ~ 150 - 170 systolic to avoid overcontrol and associated renal hypoperfusion * follow trend of hemodynamics (3) Congestive heart failure: Code(s): I50.9 - Heart failure, unspecified Status: Acute Assessment and Plan: * as suggested by admission imaging/symptoms -- probably from uncontrolled hypertension * Cardiology consulted * check Echo * on IV lasix * follow respiratory status (4) Obesity, morbid, BMI 50 or higher: Code(s): E66.01 - Morbid (severe) obesity due to excess calories Status: Acute Assessment and Plan: * maybe a contributing component to renal insufficiency * counseled on weight loss I will continue to follow the patient with you while he remains hospitalized and make further recommendations as deemed necessary. Thank you for allowing me to participate in the care of this patient. L History of Present Illness Reason for Consult Consult date: 01/22/25 Reason for consult: acute renal failure (on chronic kidney disease versus progression of chronic kidney disease??) Chief Complaint Chief complaint: Hypertensive urgency, elevated troponin, History of Present Illness Narrative: The patient is a 44-year-old male with a past medical history as outlined below who presented to the ER from [facility] for evaluation of dry cough and markedly elevated blood pressure at urgent care. The patient reports that he has been out of medications for several weeks (but evidence would argue it has been closer to a year). On arrival to the ER the patient's blood pressures were 217/150s. Patient denies any chest pain or lower extremity swelling. He has been having dyspnea on exertion and orthopnea. He he also reports paroxysmal nocturnal dyspnea and a dry cough at all started about 6 weeks ago. He does snore quite loudly and since admission to the ICU is been noted to have episodes of hypoxia with sleep. He has noticed that his abdomen is felt tighter than usual. He has had a dry nonproductive cough. He reports that his cough dyspnea and orthopnea all started about the same time. He reports that his losartan was discontinued shortly after was started due to his renal function. He reports that 1 of the other blood pressure medications was stopped due to leg swelling. She he states that even with being on multiple blood pressure medications in the past his blood pressures are usually still high. He stated that he does not check his blood pressures all that frequently but when he does check them as they are usually in the 180s systolic range. He does not weigh is self frequently but his weight is at least up 10 lb between his last to episodes weight checks. He is relatively sedentary at baseline. In the ER patient received hydralazine with no real improvement in his blood pressure. He subsequently received 40 mg IV Lasix, labetalol 20 mg IV push and transdermal nitroglycerin 1 in with improvement in blood pressures to 199 over 133. Subsequently patient was placed on a Cardene drip and admitted to ICU for hypertensive urgency given the fact that the patient had evidence of acute versus acute on chronic kidney injury, elevated troponin and pulmonary edema suggesting decompensated heart failure. Since his admission to the ICU, he has since been weaned off the nicardipine drip and started on oral antihypertensive medications in addition to IV diuretics. He has also been instituted IV p.r.n. medications an effort to maintain stability in his pressure. Renal consultation was requested due to his elevated creatinine/renal insufficiency. From review the patient's electronic medical record as well as access to his my chart record, who sees the patient has had some degree of renal insufficiency that dates back as far as 2022 if not longer. He reports that he thought he saw a assistant restaurant general manager on 1 of his hospitalizations but has never seen 1 in the outpatient setting. His most recent blood tests I could find from 2023 showed a creatinine of 1.64 mg/dL. On admission, his creatinine was 2.25 mg/dL arguing that either this is a possible acute insult on his baseline renal insufficiency although more likely it is progression of disease given his poorly controlled hypertension as evidence by this hospitalization. In spite of his renal insufficiency, he has no critical electrolyte abnormalities, metabolic acidosis or evidence of uremia he does have some mild volume overload being treated with IV diuretics. Currently, the time my evaluation he seems to be doing reasonably. Review of Systems 2 Review of Systems: As per HPI. [facility] Past Medical History Medical History (Updated 01/25/25 @ 14:18 by Geno Richards MD) Hyperlipidemia Gout Obesity, morbid, BMI 50 or higher Essential hypertension Surgical History Surgical History History of circumcision At age 12 Family History Family History Other Breast cancer Grandparent Cancer Social History Social History Social History: He lives with his Christiane. They have been for about 7 years but have been together for about 15 years. He briefly smoked for about 5 years 1 pack per week. His he denies any illicit substance use. He drinks about 4-5 alcoholic beverages on the weekend. He does not have any children. 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 status: Full code Surrogate decision maker: Christiane () Smoking status: Former smoker Second hand tobacco smoke exposure: Yes Alcohol intake: current Drinks per week: 5 Substance use: never Substance use type: does not use Do You Feel Safe in your Home?: Yes Lack of Transportation: YES Lack of Food: Sometimes True Current Housing: I Have Housing Concerned About Future Housing: No Difficulty Paying Gas/Electric Bills: No Difficulty Paying for Meds: No Currently Unemployed: No Education: Trade/Vocational Certificate Difficulty w/ Childcare or Family Care: No Spiritual care concerns: No Meds Home Medications and Allergies Home Medications ?Medication ?Instructions ?Recorded ?Confirmed ?Type amlodipine 10 mg tablet 10 mg PO DAILY 01/21/25 01/22/25 History rosuvastatin 10 mg tablet 10 mg PO DAILY 01/22/25 01/22/25 History allopurinol 300 mg tablet 300 mg PO DAILY 01/24/25 01/24/25 History aspirin 81 mg tablet,delayed 81 mg PO QAM #30 tabs 01/24/25 Rx release carvedilol 12.5 mg tablet (Coreg) 12.5 mg PO Q12HR #60 tabs 01/24/25 Rx hydralazine 50 mg tablet 50 mg PO Q8HR #60 tabs 01/24/25 Rx hydralazine 25 mg tablet 25 mg PO Q12HR #60 tabs 01/25/25 Rx hydrocodone 5 mg-acetaminophen 325 1 tablet PO Q6H PRN Pain Rated 4-6 01/25/25 Rx mg tablet #15 tabs prednisone 20 mg tablet 40 mg (2 x 20 mg) PO DAILY@0800 #8 01/25/25 Rx tabs Allergies Allergy/AdvReac Type Severity Reaction Status Date / Time No Known Allergies Allergy Verified 01/21/25 19:31 Vital Signs Vital Signs Temp Pulse Resp BP Pulse Ox O2 Del Method 01/22/25 10:00 63 203/152 H 01/22/25 10:00 46 L 20 210/113 H 96 01/22/25 08:56 96 Room Air 01/22/25 08:50 78 01/22/25 08:24 76 01/22/25 08:00 80 01/22/25 08:00 82 199/124 H 01/22/25 08:00 100 Room Air 01/22/25 07:40 97.5 F L 59 L 20 188/108 H 100 01/22/25 06:00 64 175/151 H 01/22/25 06:00 64 01/22/25 04:00 64 16 98 Room Air 01/22/25 04:00 64 01/22/25 04:00 98.2 F 64 16 179/137 H 98 01/22/25 04:00 91 179/137 H 01/22/25 02:30 94 167/70 H 01/22/25 02:15 79 177/139 H 01/22/25 02:00 78 01/22/25 02:00 78 25 H 169/106 H 94 01/22/25 02:00 78 169/106 H 01/22/25 01:46 92 133/105 H 01/22/25 01:45 92 133/105 H 01/22/25 01:31 89 161/92 H 01/22/25 01:15 90 166/95 H 01/22/25 01:00 99 200/140 H 01/22/25 00:45 86 183/115 H 01/22/25 00:35 78 215/187 H 01/22/25 00:00 63 01/22/25 00:00 63 12 94 Room Air 01/22/25 00:00 98.2 F 63 12 173/114 H 94 01/22/25 00:00 89 173/114 H 01/21/25 23:32 75 16 188/127 H 97 01/21/25 22:58 81 199/133 H 01/21/25 22:30 78 16 180/141 H 96 01/21/25 22:06 80 19 196/138 H 97 01/21/25 21:45 79 18 194/138 H 96 01/21/25 21:39 77 20 189/126 H 95 01/21/25 21:10 225/145 H 01/21/25 20:24 86 20 215/162 H 95 01/21/25 19:48 96 01/21/25 19:26 83 16 217/153 H 96 01/21/25 18:50 97.4 F L 95 16 154/112 H 96 Room Air Exam 2 Narrative: GENERAL APPEARANCE: large but well developed well nourished male in no acute distress HEENT: normocephalic, atraumatic, normal conjunctiva and sclera, nares patient NECK: no lymphadenopathy, thyromegaly, or JVD MOUTH: normal lips, teeth, and gums CARDIOVASCULAR: RRR, normal S1 and S2, no rub detected RESPIRATORY: clear anteriorly; decreased at bases ABDOMEN: soft, nontender, nondistended, positive bowel sounds present EXTREMITIES: no evidence of cyanosis, clubbing, 1+ edema NEUROLOGICAL: alert and oriented x 3; CN II - XII intact bilaterally; no focal deficits noted Results Lab Results 01/24/25 05:19 01/25/25 06:32 Lab results: Most recent lab results Calcium 9.4 mg/dL (8.4-10.2) 01/22/25 03:59 Magnesium 1.8 mg/dL (1.6-2.3) 01/21/25 19:37
[2025-01-22] MEDS: hydrALAZINE HCL 20 MG/ML VIAL IV PUSH (10:28)
--- NOTE | 2025-01-22 11:44 | P.CONCA_ITS ---
Assessment and Plan Assessment and plan (1) Malignant hypertensive urgency: Code(s): I16.0 - Hypertensive urgency Status: Acute (2) Elevated troponin: Code(s): R79.89 - Other specified abnormal findings of blood chemistry Status: Acute (3) Congestive heart failure: Code(s): I50.9 - Heart failure, unspecified Status: Acute (4) Acute kidney injury: Code(s): N17.9 - Acute kidney failure, unspecified Status: Acute Plan Problem list: Acute heart failure-unknown LVEF Shortness of breath secondary to acute heart failure hypertensive emergency Hypertensive emergency requiring nicardipine drip-SBP at presentation over 200, DBP in the 150s, end-organ damage as seen by BAL, elevated troponin Question of medication noncompliance Elevated troponin without chest pain most likely secondary to acute heart failure and hypertensive urgency BAL on CKD Morbid obesity Plan: Continue Aspirin 81 mg daily Continue rosuvastatin at home Trend troponin to peak EKG p.r.n. for any chest No chest pain. Recommend outpatient stress test for evaluation of ischemia after he recovers from acute illness TTE today Check hemoglobin A1c and FLP Check thyroid studies Nicardipine drip has been weaned off. Continue Coreg 25 mg b.i.d. and amlodipine 10 mg daily. Add hydralazine 50 mg t.i.d. Target blood pressure less than 120 weight Evaluate for secondary causes of hypertension with renal ultrasound, 24 hour urine metanephrines, renin aldosterone ratio Lasix 40 mg IV b.i.d. Check daily weight, ins and outs, renal function Check and replace electrolytes keep potassium greater than 4 magnesium greater than 2 Technical Expert about medication compliance Discussed plan with patient and he is agreeable with the management plan History of Present Illness History of Present Illness Consult date/time: 01/22/25 11:44 Reason For Visit: Hypertensive urgency, elevated troponin, Narrative: 42-year-old male with history of hyperlipidemia, hypertension, morbid obesity, gout, medication noncompliance presented to the ER with chief complaints of uncontrolled hypertension at urgent care. Patient states that he has been out of his blood pressure medications for few weeks and his blood pressure has been poorly controlled lately. He states that he is taking metoprolol and amlodipine but his blood pressure is not well controlled with these. He states that losartan was stopped due to renal failure and 1 of the other medications was stopped due to leg swelling. He reports worsening shortness of breath with exertion, orthopnea, and PND for the past 1-2 months. His abdomen feels tighter than usual. No chest pain or leg swelling. In the ER patient's blood pressure was 217/150s. Lab showed elevated Troponin and NT proBNP. Chest x-ray showed mild pulmonary vascular congestion. EKG showed sinus rhythm and nonspecific T- wave abnormalities in inferolateral leads. Cardiology is consulted for further recommendations. Workup: WBC: 11.2 Creatinine: 2.25 Potassium: 3.3 Troponin I: 0.100, 0.111, 0.094 NT proBNP: 4110 EKG: Sinus rhythm, nonspecific T-wave abnormality in anterolateral leads Chest x-ray: Mild pulmonary vascular congestion without focal infiltrate or effusion TTE: Ordered Review of Systems 2 Review of Systems: A complete review of system was performed and negative other than those mentioned HPI [facility] Past Medical History Medical History Hyperlipidemia Gout Obesity, morbid, BMI 50 or higher Essential hypertension Surgical History Surgical History History of circumcision At age 12 Family History Family History Other Breast cancer Grandparent Cancer Social History Social History Social History: He lives with his Christiane. They have been for about 7 years but have been together for about 15 years. He briefly smoked for about 5 years 1 pack per week. His he denies any illicit substance use. He drinks about 4-5 alcoholic beverages on the weekend. He does not have any children. 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 Code status: Full code Surrogate decision maker: Christiane () Smoking status: Former smoker Second hand tobacco smoke exposure: Yes Alcohol intake: current Drinks per week: 5 Substance use: never Substance use type: does not use Do You Feel Safe in your Home?: Yes Lack of Transportation: YES Lack of Food: Sometimes True Current Housing: I Have Housing Concerned About Future Housing: No Difficulty Paying Gas/Electric Bills: No Difficulty Paying for Meds: No Currently Unemployed: No Education: Trade/Vocational Certificate Difficulty w/ Childcare or Family Care: No Spiritual care concerns: No Meds Home Medications and Allergies Home Medications ?Medication ?Instructions ?Recorded ?Confirmed ?Type amlodipine 10 mg tablet 10 mg PO DAILY 01/21/25 01/22/25 History doxycycline hyclate 100 mg capsule 100 mg PO Q12H 01/21/25 01/22/25 History rosuvastatin 10 mg tablet 10 mg PO DAILY 01/22/25 01/22/25 History Allergies Allergy/AdvReac Type Severity Reaction Status Date / Time No Known Allergies Allergy Verified 01/21/25 19:31 Vital Signs Vital Signs - 24 hr 01/21/25 18:50 01/21/25 19:26 01/21/25 19:48 Temperature 36.3 C L Pulse Rate 95 83 Respiratory Rate 16 16 Blood Pressure 154/112 H 217/153 H Pulse Oximetry 96 96 96 Oxygen Delivery Room Air 01/21/25 20:24 01/21/25 21:10 01/21/25 21:39 Temperature Pulse Rate 86 77 Respiratory Rate 20 20 Blood Pressure 215/162 H 225/145 H 189/126 H Pulse Oximetry 95 95 Oxygen Delivery 01/21/25 21:45 01/21/25 22:06 01/21/25 22:30 Temperature Pulse Rate 79 80 78 Respiratory Rate 18 19 16 Blood Pressure 194/138 H 196/138 H 180/141 H Pulse Oximetry 96 97 96 Oxygen Delivery 01/21/25 22:58 01/21/25 23:32 01/22/25 00:00 Temperature Pulse Rate 81 75 89 Respiratory Rate 16 Blood Pressure 199/133 H 188/127 H 173/114 H Pulse Oximetry 97 Oxygen Delivery 01/22/25 00:00 01/22/25 00:00 01/22/25 00:00 Temperature 36.8 C Pulse Rate 63 63 63 Respiratory Rate 12 12 Blood Pressure 173/114 H Pulse Oximetry 94 94 Oxygen Delivery Room Air 01/22/25 00:35 01/22/25 00:45 01/22/25 01:00 Temperature Pulse Rate 78 86 99 Respiratory Rate Blood Pressure 215/187 H 183/115 H 200/140 H Pulse Oximetry Oxygen Delivery 01/22/25 01:15 01/22/25 01:31 01/22/25 01:45 Temperature Pulse Rate 90 89 92 Respiratory Rate Blood Pressure 166/95 H 161/92 H 133/105 H Pulse Oximetry Oxygen Delivery 01/22/25 01:46 01/22/25 02:00 01/22/25 02:00 Temperature Pulse Rate 92 78 78 Respiratory Rate 25 H Blood Pressure 133/105 H 169/106 H 169/106 H Pulse Oximetry 94 Oxygen Delivery 01/22/25 02:00 01/22/25 02:15 01/22/25 02:30 Temperature Pulse Rate 78 79 94 Respiratory Rate Blood Pressure 177/139 H 167/70 H Pulse Oximetry Oxygen Delivery 01/22/25 04:00 01/22/25 04:00 01/22/25 04:00 Temperature 36.8 C Pulse Rate 91 64 64 Respiratory Rate 16 Blood Pressure 179/137 H 179/137 H Pulse Oximetry 98 Oxygen Delivery 01/22/25 04:00 01/22/25 06:00 01/22/25 06:00 Temperature Pulse Rate 64 64 64 Respiratory Rate 16 Blood Pressure 175/151 H Pulse Oximetry 98 Oxygen Delivery Room Air 01/22/25 07:40 01/22/25 08:00 01/22/25 08:00 Temperature 36.4 C L Pulse Rate 59 L 82 Respiratory Rate 20 Blood Pressure 188/108 H 199/124 H Pulse Oximetry 100 100 Oxygen Delivery Room Air 01/22/25 08:24 01/22/25 08:50 01/22/25 08:56 Temperature Pulse Rate 76 78 Respiratory Rate Blood Pressure Pulse Oximetry 96 Oxygen Delivery Room Air 01/22/25 10:00 01/22/25 10:00 Temperature Pulse Rate 46 L 63 Respiratory Rate 20 Blood Pressure 210/113 H 203/152 H Pulse Oximetry 96 Oxygen Delivery Exam 2 Narrative: General: Alert oriented x3, no acute distress Neck: Supple, JVD + Chest: Bilaterally clear to auscultation, no rales or rhonchi Cardiac: S1, S2 +, regular rate, regular rhythm, no murmurs or rubs Extremities: Bilateral lower extremity edema 1+, no skin rash Neurologic: Alert and oriented x3, no focal neurological deficits Results Labs and Meds 01/22/25 03:59 01/22/25 03:59 Lab results: Cardiac Enzymes 01/21/25 01/21/25 01/22/25 Range/Units 19:37 22:53 01:26 AST 28 (17-59) U/L Troponin I 0.100 H* 0.111 H* 0.094 H* (0.000-0.034) ng/mL 01/22/25 Range/Units 03:59 AST 26 (17-59) U/L Troponin I (0.000-0.034) ng/mL Lipids 01/22/25 Range/Units 01:26 Triglycerides 141 (<150) mg/dL Cholesterol 233 H (0-200) mg/dL CBC 01/21/25 01/22/25 Range/Units 19:37 03:59 WBC 9.8 11.2 H (4.5-10.0) K/mm3 RBC 5.31 5.68 (4.6-6.20) M/mm3 Hgb 12.4 L 13.3 L (14.0-18.0) g/dL Hct 40.5 L 43.0 (42.0-52.0) % Plt Count 246 263 (150-375) k/mm3 Lymph # (Auto) 2.39 2.78 (0.9-3.2) K/mm3 [place] # (Auto) 0.6 0.8 H (0.1-0.6) K/mm3 Eos # (Auto) 0.2 0.3 (0-0.3) K/mm3 Baso # (Auto) 0.1 0.1 (0.0-0.1) K/mm3 Comprehensive Metabolic Panel 01/21/25 01/22/25 Range/Units 19:37 03:59 Sodium 139 142 (137-145) mmol/L Potassium 3.7 3.3 L (3.4-5.0) mmol/L Chloride 104 103 (98-107) mmol/L Carbon Dioxide 28 28 (22-30) mmol/L BUN 28 H 26 H (9-20) mg/dL Creatinine 2.12 H 2.25 H (0.7-1.3) mg/dL Glucose 107 107 (65-110) mg/dL Calcium 9.2 9.4 (8.4-10.2) mg/dL AST 28 26 (17-59) U/L ALT 17 17 (6-50) U/L Alkaline Phosphatase 82 94 (38-126) U/L Total Protein 7.5 8.1 (6.3-8.2) g/dL Albumin 4.0 4.1 (3.5-5.1) g/dL Intake and Output 01/21/25 01/22/25 01/22/25 23:59 07:59 15:59 Intake Total 460.6 120 Output Total 3050 350 Balance -2589.4 -230 Intake: IV 220.6 0 niCARdipine 20 MG/200 ML 20 mg 220.6 0 In 200 ml @ 0 MG/HR IV CONT . Q0M [facility] Rx#:[id number] Oral 240 120 Output: Urine 3050 350 Patient Weight 01/22/25 23:59 Weight 165.5 kg
[2025-01-22] MEDS: hydrALAZINE HCL 50 MG TABLET PO (17:40)
--- NOTE | 2025-01-22 22:10 | PC.NURSE ---
Report given to Manisha De Los Santos RN
[2025-01-23] VITALS (14 sets, daily range): BP systolic 120–154; BP diastolic 82–112; PULSE 49–82; RESP 12–20; TEMP 36.6–37.1; O2SAT 93–99
[2025-01-23] MEDS: hydrALAZINE HCL 50 MG TABLET PO ×3 (00:24→12:20)
[2025-01-23 04:57] LABS: Hematocrit 44.9 % (42.0-52.0); Hemoglobin 13.9 g/dL (14.0-18.0); Mean Corpuscular Hemoglobin 23.4 pg (26-34); Mean Corpuscular Volume 75.5 fl (80-100); Mean Platelet Volume 11.3 fl (7.4-10.4); Platelet Count Result 289 k/mm3 (150-375); Red Blood Count 5.95 M/mm3 (4.6-6.20); Red Cell Distribution Width 17.2 % (11.5-14.5); White Blood Count 10.3 K/mm3 (4.5-10.0)
[2025-01-23 05:21] LABS: Complement C3 137 mg/dL (88-165)
[2025-01-23 05:25] LABS: Anion Gap 11 mmol/L (4-12); Blood Urea Nitrogen 28 mg/dL (9-20); Calcium 9.3 mg/dL (8.4-10.2); Carbon Dioxide 28 mmol/L (22-30); Chloride 101 mmol/L (98-107); Estimated CRCL calculation 52 ml/min; Estimated Glomerular Filt Rate 28; Glucose 98 mg/dL (65-110); Potassium 3.4 mmol/L (3.4-5.0); Sodium 140 mmol/L (137-145)
[2025-01-23 05:33] LABS: Erythrocyte Sedimentation Rate 16 mm/hr (0-20)
[2025-01-23] MEDS: ACETAMINOPHEN 325 MG TABLET 650 MG PO ×2 (10:06→20:51)
[2025-01-23] MEDS: ENOXAPARIN 40 MG/0.4 ML SYRINGE SUB-Q ×2 (10:06→20:52)
[2025-01-23] MEDS: amLODIPine BESYLATE 10 MG TABLET PO (10:07)
[2025-01-23] MEDS: ASPIRIN 81 MG CHEWABLE TABLET PO (10:07)
[2025-01-23] MEDS: carvediloL 25 MG TABLET PO ×2 (10:07→20:51)
[2025-01-23] MEDS: POTASSIUM CHLORIDE 20 MEQ ER TABLET PO (10:25)
--- NOTE | 2025-01-23 10:34 | PM.PNCARD ---
Progress Note: A&P Assessment and Plan (1) Hypertension: Code(s): I10 - Essential (primary) hypertension Status: Acute (2) Elevated troponin: Code(s): R79.89 - Other specified abnormal findings of blood chemistry Status: Acute Plan Longstanding essential hypertension with no recent treatment due to medical noncompliance. Unfortunately he has evidence of significant hypertensive renal disease. His blood pressure is significantly improved, obviously not ideal but appropriate medical therapy has been initiated. His troponin levels are related to his hypertension as well as his renal insufficiency and do NOT indicate evidence of acute coronary syndrome. The reason they were sampled is not clear to me at this time. In any event from my perspective he is stable enough for discharge he states his other physicians have suggested he stay 1 more day in the hospital which of course is fine. I told him that I thought ideally with follow-up with his topographical drafter who is in [facility] as well as a freelance makeup artist after discharge. Please let me know if you have additional cardiac questions/issue but given this situation I am not going to anticipate scheduling follow-up in our office I do not believe he needs 3 physicians managing his hypertension Baldemar Mendoza MD [facility] Subjective Date/time seen: Date of service: 01/23/25 10:34 Interval history: Follow-up visit in this 44-year-old man with: Longstanding hypertension with severe hypertension and evidence of end-organ disease with noncompliance with treatment and follow-up. He is asymptomatic today and feels well. Hypertension is markedly improved with initiation of therapy and long conversation with the patient today about extreme importance in getting his blood pressure under control and following up with his topographical drafter and probably with a freelance makeup artist because of his apparent hypertensive renal disease. Exam Const: General: comfortable and no acute distress Other: Very pleasant morbidly obese man HENMT: Mouth: Yes moist mucous membranes Eyes: Sclera: sclerae normal Neck: Neck: supple Other: Not able to assess JVD given his body habitus Resp: Effort & Inspection: normal respiratory effort Auscultation: clear to auscultation bilaterally Other: Breath sounds are distant but clear throughout Cardio: Rate: regular rate Rhythm: regular rhythm Other: PMI is not palpable no obvious murmur GI: GI Palp: Yes Soft to palpation Auscultation: normal bowel sounds Skin: General skin exam: normal color Neuro: Other: Alert and oriented x3 Extrem: Other: Adequate perfusion Objective Data Vital Signs Vital Signs: Vital Signs - 24 hr 01/22/25 11:58 01/22/25 12:00 01/22/25 12:00 Temperature 36.6 C Pulse Rate 83 75 81 Respiratory Rate 16 Blood Pressure 172/102 H 163/100 H Pulse Oximetry 96 Oxygen Delivery 01/22/25 12:00 01/22/25 14:00 01/22/25 14:00 Temperature Pulse Rate 62 63 Respiratory Rate 18 Blood Pressure 176/96 H 155/102 H Pulse Oximetry 94 94 Oxygen Delivery Room Air 01/22/25 14:00 01/22/25 16:00 01/22/25 16:00 Temperature 36.6 C Pulse Rate 62 63 Respiratory Rate 18 Blood Pressure 177/116 H Pulse Oximetry 96 95 Oxygen Delivery Room Air 01/22/25 16:00 01/22/25 18:00 01/22/25 18:44 Temperature 36.7 C Pulse Rate 64 73 71 Respiratory Rate 20 Blood Pressure 164/104 H Pulse Oximetry 96 Oxygen Delivery 01/22/25 20:00 01/22/25 20:00 01/22/25 20:00 Temperature 36.3 C L Pulse Rate 69 70 61 Respiratory Rate 20 20 Blood Pressure 155/113 H Pulse Oximetry 92 92 Oxygen Delivery Room Air 01/22/25 20:25 01/22/25 22:00 01/22/25 23:55 Temperature Pulse Rate 67 62 67 Respiratory Rate 18 Blood Pressure 140/98 H Pulse Oximetry 93 Oxygen Delivery 01/23/25 00:00 01/23/25 00:00 01/23/25 02:00 Temperature Pulse Rate 68 70 Respiratory Rate Blood Pressure Pulse Oximetry Oxygen Delivery Room Air 01/23/25 04:00 01/23/25 04:00 01/23/25 04:30 Temperature 36.7 C Pulse Rate 70 49 L Respiratory Rate 20 Blood Pressure 154/112 H Pulse Oximetry 95 Oxygen Delivery Room Air 01/23/25 06:00 01/23/25 08:00 Temperature 36.6 C Pulse Rate 57 L 82 Respiratory Rate 12 Blood Pressure 139/101 H Pulse Oximetry 98 Oxygen Delivery Intake/Output Intake/Output: Intake & Output 01/20/25 01/21/25 01/22/25 01/23/25 23:59 23:59 23:59 23:59 Intake Total 1060.6 250 Output Total 4300 Balance -3239.4 250 Meds/Results Medications: Active Medications Generic Name Dose Route Start Last Admin Trade Name Freq PRN Reason Stop Dose Admin Acetaminophen 650 mg 01/21/25 22:37 01/23/25 10:06 Acetaminophen 325 Mg Tablet PO 650 mg Q4H PRN Administration Mild Pain (1-3) or Fever Amlodipine Besylate 10 mg 01/22/25 09:00 01/23/25 10:07 Amlodipine Besylate 10 Mg Tablet PO 10 mg DAILY JAROD Administration Aspirin 81 mg 01/23/25 09:00 01/23/25 10:07 Aspirin 81 Mg Enteric Tablet PO Not Given QAM JAROD Carvedilol 25 mg 01/22/25 09:00 01/23/25 10:07 Carvedilol 25 Mg Tablet PO 25 mg Q12HR JAROD Administration Enoxaparin Sodium 40 mg 01/22/25 09:00 01/22/25 20:26 Enoxaparin 40 Mg/0.4 Ml Syringe SUB-Q 40 mg Q12HR JAROD Administration Furosemide 40 mg 01/22/25 09:00 01/22/25 17:40 Furosemide Inj 40 Mg/4 Ml Vial IV PUSH 40 mg BID JAROD Administration Hydralazine HCl 20 mg 01/22/25 08:23 01/22/25 10:28 Hydralazine Hcl 20 Mg/Ml Vial IV PUSH 20 mg Q4H PRN Administration SBP more than 180 Hydralazine HCl 50 mg 01/22/25 18:00 01/23/25 06:35 Hydralazine Hcl 50 Mg Tablet PO 50 mg Q6HR JAROD Administration Labetalol HCl 20 mg 01/22/25 08:23 01/22/25 08:50 Labetalol Hcl Inj 100 Mg/20 Ml Vial IV PUSH 20 mg Q4H PRN Administration SBP > 180 - 1st choice Ondansetron HCl 4 mg 01/21/25 22:37 Ondansetron Inj 4 Mg/2 Ml Vial IV PUSH Q4H PRN Nausea Perflutren Lipid Microsphere 0 ml 01/22/25 11:55 Perflutren Lipid Microspheres 1.5 Ml Vial Diluted To 10 Ml Total Volume IV PUSH 01/25/25 11:55 ONCE PRN adequate visualization Protocol Radiology Results: ITS Impressions Chest X-Ray 01/23/25 07:17 IMPRESSION: 1. No acute cardiopulmonary disease. Arterial/Peripheral Duplex 01/23/25 09:49 IMPRESSION: 1. Normal kidneys with no hydronephrosis. 2. No Doppler evidence of renal artery stenosis. Renal Ultrasound 01/23/25 09:49 IMPRESSION: 1. Normal kidneys with no hydronephrosis. 2. No Doppler evidence of renal artery stenosis. Labs Labs: Laboratory Results - last 24 hr 01/23/25 04:22 WBC 10.3 H RBC 5.95 Hgb 13.9 L Hct 44.9 MCV 75.5 L MCH 23.4 L MCHC 31.0 L RDW 17.2 H Plt Count 289 MPV 11.3 H ESR 16 Sodium 140 Potassium 3.4 Chloride 101 Carbon Dioxide 28 Anion Gap 11 BUN 28 H Creatinine 2.55 H Estim Creat Clear Calc 52 Estimated GFR 28 L Glucose 98 Calcium 9.3 Phosphorus 4.0 Albumin 4.0 Complement C3 137 Complement C4 44.5 H
--- NOTE | 2025-01-23 11:26 | P.PNNP_ITS ---
Progress Note: A&P Assessment and Plan (1) Elevated serum creatinine: Code(s): R79.89 - Other specified abnormal findings of blood chemistry Status: Acute Assessment and Plan: * acute kidney injury on chronic kidney disease versus progression of chronic kidney disease?? * patient reports an abnormal creatinine ~ a year ago during a previous hospitalization.... * [facility] 1.64[facility]/dl in March 2024 * creatinine 1.43mg/dl on January 2023 ([facility]) * evaluation to date: * renal ultrasound normal * no evidence of renal artery stenosis by renal duplex * urine electrolytes look prerenal (despite need for diuresis on admission) * urine eosinophils negative * mild proteinuria * serologies pending * given his poor BP control, I suspect a degree of CKD progression * follow trend of repeat labs and UOP (2) Hypertensive emergency: Code(s): I16.1 - Hypertensive emergency Status: Acute Assessment and Plan: * started on nicardipine infusion as unresponsive to IV push medications * BP has improved so that nicardipine infusion has beeb discontinued * started on oral Coreg, Norvasc, and hydralazine * on IV Lasix due to evidence of volume overload on presentation as well... * discontinued based on CXR results and rising creatinine * PRN labetalol and hydralazine to keep blood pressure close to 180 systolic * would aim to keep systolic BP ~ 150 - 170 systolic to avoid overcontrol and associated renal hypoperfusion * follow trend of hemodynamics (3) Congestive heart failure: Code(s): I50.9 - Heart failure, unspecified Status: Acute Assessment and Plan: * as suggested by admission imaging/symptoms -- probably from uncontrolled hypertension * Cardiology recommendations noted * Echo results noted: * technically challenging exam because of obesity, definity contrast utilized * concentric LVH with mild LV enlargement and mildly reduced systolic function, estimated at 45 - 50% * grade 2 diastolic noncompliance * moderate left atrial enlargement * trivial aortic valve regurgitation * IV lasix on hold given rising creatinine * follow respiratory status (4) Obesity, morbid, BMI 50 or higher: Code(s): E66.01 - Morbid (severe) obesity due to excess calories Status: Acute Assessment and Plan: * maybe a contributing component to renal insufficiency * counseled on weight loss Will continue to follow. L Subjective Date/time seen: 01/23/25 11:26 Interval history: Follow-up for hypertensive urgency and renal insufficiency. Transferred out of ICU yesterday evening with relative stability/improvement in blood pressure readings; IV lasix discontinued given improvement in pulmonary edema as noted by CXR this morning; only major complaint is that of fatigue at the time of my visit. Exam 2 Narrative: General: large WD/WN male in NAD Heart: normal S1 and S2; no rub Lungs: clear anteriorly, slightly decreased at bases Abdomen: obses but soft, nontender, nondistended, positive bowel sounds Extremities: no cyanosis or clubbing; no edema Skin: warm and dry Objective Data Vital Signs Vital Signs: Vital Signs Temp Pulse Resp BP Pulse Ox O2 Del Method 01/23/25 10:00 67 01/23/25 08:00 60 01/23/25 08:00 Room Air 01/23/25 08:00 97.8 F 82 12 139/101 H 98 01/23/25 06:00 57 L 01/23/25 04:30 Room Air 01/23/25 04:00 98.0 F 49 L 20 154/112 H 95 01/23/25 04:00 70 01/23/25 02:00 70 01/23/25 00:00 68 01/23/25 00:00 Room Air 01/22/25 23:55 67 18 140/98 H 93 01/22/25 22:00 62 01/22/25 20:25 67 01/22/25 20:00 61 20 92 Room Air 01/22/25 20:00 97.4 F L 70 20 155/113 H 92 01/22/25 20:00 69 01/22/25 18:44 98.1 F 71 20 164/104 H 96 01/22/25 18:00 73 01/22/25 16:00 64 01/22/25 16:00 95 Room Air 01/22/25 16:00 98 F 63 18 177/116 H 96 Intake/Output Intake/Output: Intake & Output 01/20/25 01/21/25 01/22/25 01/23/25 23:59 23:59 23:59 23:59 Intake Total 1060.6 250 Output Total 4300 Balance -3239.4 250 Meds/Results Medications: Active Medications Generic Name Dose Route Start Last Admin Trade Name Freq PRN Reason Stop Dose Admin Acetaminophen 650 mg 01/21/25 22:37 01/23/25 10:06 Acetaminophen 325 Mg Tablet PO 650 mg Q4H PRN Administration Mild Pain (1-3) or Fever Amlodipine Besylate 10 mg 01/22/25 09:00 01/23/25 10:07 Amlodipine Besylate 10 Mg Tablet PO 10 mg DAILY JAROD Administration Aspirin 81 mg 01/23/25 09:00 01/23/25 10:07 Aspirin 81 Mg Enteric Tablet PO [facility] 25 mg 01/22/25 09:00 01/23/25 10:07 Carvedilol 25 Mg Tablet PO 25 mg Q12HR JAROD Administration Enoxaparin Sodium 40 mg 01/22/25 09:00 01/22/25 20:26 Enoxaparin 40 Mg/0.4 Ml Syringe SUB-Q 40 mg Q12HR JAROD Administration Furosemide 40 mg 01/22/25 09:00 01/22/25 17:40 Furosemide Inj 40 Mg/4 Ml Vial IV PUSH 40 mg BID JAROD Administration Hydralazine HCl 20 mg 01/22/25 08:23 01/22/25 10:28 Hydralazine Hcl 20 Mg/Ml Vial IV PUSH 20 mg Q4H PRN Administration SBP more than 180 Hydralazine HCl 50 mg 01/22/25 18:00 01/23/25 06:35 Hydralazine Hcl 50 Mg Tablet PO 50 mg Q6HR JAROD Administration Labetalol HCl 20 mg 01/22/25 08:23 01/22/25 08:50 Labetalol Hcl Inj 100 Mg/20 Ml Vial IV PUSH 20 mg Q4H PRN Administration SBP > 180 - 1st choice Ondansetron HCl 4 mg 01/21/25 22:37 Ondansetron Inj 4 Mg/2 Ml Vial IV PUSH Q4H PRN Nausea Perflutren Lipid Microsphere 0 ml 01/22/25 11:55 Perflutren Lipid Microspheres 1.5 Ml Vial Diluted To 10 Ml Total Volume IV PUSH 01/25/25 11:55 ONCE PRN adequate visualization Protocol Radiology Results: ITS Impressions Chest X-Ray 01/23/25 07:17 IMPRESSION: 1. No acute cardiopulmonary disease. Arterial/Peripheral Duplex 01/23/25 09:49 IMPRESSION: 1. Normal kidneys with no hydronephrosis. 2. No Doppler evidence of renal artery stenosis. Labs Labs: Laboratory Tests 01/23/25 04:22 01/23/25 04:22 Calcium 9.3 Phosphorus 4.0 Albumin 4.0
[2025-01-23 13:29] LABS: Sodium Urine Random 60 meq/L
[2025-01-23 13:30] LABS: Urea Random Urine 1015 MG/DL
[2025-01-23 13:34] LABS: Eosinophil Urine None Seen % (None Seen)
[2025-01-23 13:35] LABS: Urine Eos QC 2nd Tech Confirmed
[2025-01-23 13:57] LABS: Creatinine Urine 244.3 mg/dL; Total Protein Urine Random 90 mg/dL; Ur Ttl Prot Creatinine Ratio 0.37 mg/mg (0-0.20)
--- NOTE | 2025-01-23 15:14 | PM.IMPN ---
Progress Note: A&P Assessment and Plan (1) Hypertensive emergency: Code(s): I16.1 - Hypertensive emergency Status: Acute Assessment and Plan: Patient presented with elevated blood pressure and was started on nicardipine infusion. Pressure has improved to a point that nicardipine infusion was discontinued. Continue Coreg, Norvasc Lasix on hold with worsening kidney function Continue p.r.n. labetalol and hydralazine (2) Elevated troponin: Code(s): R79.89 - Other specified abnormal findings of blood chemistry Status: Acute Assessment and Plan: Mildly elevated troponin in setting of uncontrolled blood pressure and elevated creatinine. Patient denies any chest pain but has Continue aspirin (3) Obesity, morbid, BMI 50 or higher: Code(s): E66.01 - Morbid (severe) obesity due to excess calories Status: Acute Assessment and Plan: Patient is morbidly obese and was counseled for weight loss (4) Elevated serum creatinine: Code(s): R79.89 - Other specified abnormal findings of blood chemistry Status: Acute Assessment and Plan: AK versus BAL CKD Kidney ultrasound unremarkable Hold of Lasix Nephrology team on board (5) Congestive heart failure: Code(s): I50.9 - Heart failure, unspecified Status: Acute Assessment and Plan: HFrEF Patient exhibiting symptoms and signs of congestive heart failure likely from uncontrolled hypertension Check echocardiogram showed grade 2 diastolic dysfunction and ejection fraction 45-50% IV Lasix on hold with worsening kidney function Cardiac team on board Plan DVT prophylaxis -Lovenox Nutrition -heart healthy Code Status - Full Code Subjective Date/time seen: 01/23/25 15:14 Interval history: per HPi: 44-year-old male with a past medical history of morbid obesity, essential hypertension and nonadherence to medication therapy who presented to the ER from [facility] for evaluation of dry cough and markedly elevated blood pressure at urgent care. The patient reports that he has been out of medications for ?a few weeks?. On review the patient's external medication records from pharmacy the patient has not had refill of his metoprolol, losartan, Lasix or amlodipine since March 26, 2024 at which time he had a 30 day supply filled. On arrival to the ER the patient's blood pressures were 217/150s. Patient denies any chest pain or lower extremity swelling. He has been having dyspnea on exertion and orthopnea. He he also reports paroxysmal nocturnal dyspnea and a dry cough at all started about 6 weeks ago. He does snore quite loudly and since admission to the ICU is been noted to have episodes of hypoxia with sleep. He has noticed that his abdomen is felt tighter than usual. He has had a dry nonproductive cough. He reports that his cough dyspnea and orthopnea all started about the same time. He reports that his losartan was discontinued shortly after was started due to his renal function. He reports that 1 of the other blood pressure medications was stopped due to leg swelling. She he states that even with being on multiple blood pressure medications in the past his blood pressures are usually still high. He stated that he does not check his blood pressures all that frequently but when he does check them as they are usually in the 180s systolic range. He does not weigh is self frequently but his weight is at least up 10 lb between his last to episodes weight checks. He is relatively sedentary at baseline. In the ER patient received hydralazine with no real improvement in his blood pressure. He subsequently received 40 mg IV Lasix, labetalol 20 mg IV push and transdermal nitroglycerin 1 in with improvement in blood pressures to 199 over 133. Subsequently patient was placed on a Cardene drip and admitted to ICU for hypertensive urgency given the fact that the patient had evidence of acute versus acute on chronic kidney injury, elevated troponin and pulmonary edema suggesting decompensated heart failure. 01/23/25 Patient initially was admitted to ICU for blood pressure management. Blood pressure well under better control and patient was transferred to the step-down unit. Patient was seen and examined at bedside. He is feeling fine. Denies any chest pain, shortness off breath, abdominal pain, nausea vomiting. Patient had episode of Mobitz 2 overnight. Discussed with patient to follow-up with sleep study as outpatient. Kidney function getting worse. Will hold of Lasix today. Nephrology team on board. Renal ultrasound unremarkable Review of Systems Review of Systems: 12 systems were reviewed with pertinent positives and negatives per HPI. Except as documented in the HPI, all other systems were reviewed and are negative. All systems reviewed & are unremarkable except as noted in HPI and below (HPI) Exam Narrative: General: Pt is alert awake and in NAD Lungs/Chest: Trachea central Clear BS B/L, No crackles or wheezing. Breath sounds are decreased at bases Cardiac: RRR. Normal S1 S2. No murmurs Circulation: Pedal pulses are intact and symmetrical. Abdomen: Morbidly obese Normal bowel sounds.. Soft. NT. ND. Extremities: Mild pitting edema in both legs : Clay in place Neurologic: Follows commands. Moves all 4 extremities PERRL AO x3 Skin: No Rash Const: Other: No acute distress, morbidly obese, appears stated age HENMT: Other: Mucous membranes are moist, no oral pharyngeal erythema, last for ASA Eyes: Other: Pupils are equal and reactive, mild scleral icterus, no conjunctival pallor Neck: Other: No JVD, mild thyromegaly, large neck circumference Resp: Other: Crackles anterior lung green, no increased work of breathing Cardio: Other: Regular rate, regular rhythm, 2+ bilateral radial pedal pulses, no JVD, no murmur GI: Other: Soft, obese, normoactive bowel sounds, nontender Skin: Other: Tattoos covering both arms and is sleeve like fashion, no jaundice, no pallor Neuro: Other: Alert oriented x4, speech is clear, no facial asymmetry, no localizing neurologic deficits noted during the course of conversation Extrem: Other: No clubbing, cyanosis or edema Psych: Other: Pleasant and cooperative, appropriate mood and affect, fair judgment and insight Objective Data Vital Signs Vital Signs: Vital Signs - 24 hr 01/22/25 16:00 01/22/25 16:00 01/22/25 16:00 Temperature 98 F Pulse Rate 63 64 Respiratory Rate 18 Blood Pressure 177/116 H Pulse Oximetry 96 95 Oxygen Delivery Room Air 01/22/25 18:00 01/22/25 18:44 01/22/25 20:00 Temperature 98.1 F Pulse Rate 73 71 69 Respiratory Rate 20 Blood Pressure 164/104 H Pulse Oximetry 96 Oxygen Delivery 01/22/25 20:00 01/22/25 20:00 01/22/25 20:25 Temperature 97.4 F L Pulse Rate 70 61 67 Respiratory Rate 20 20 Blood Pressure 155/113 H Pulse Oximetry 92 92 Oxygen Delivery Room Air 01/22/25 22:00 01/22/25 23:55 01/23/25 00:00 Temperature Pulse Rate 62 67 Respiratory Rate 18 Blood Pressure 140/98 H Pulse Oximetry 93 Oxygen Delivery Room Air 01/23/25 00:00 01/23/25 02:00 01/23/25 04:00 Temperature Pulse Rate 68 70 70 Respiratory Rate Blood Pressure Pulse Oximetry Oxygen Delivery 01/23/25 04:00 01/23/25 04:30 01/23/25 06:00 Temperature 98.0 F Pulse Rate 49 L 57 L Respiratory Rate 20 Blood Pressure 154/112 H Pulse Oximetry 95 Oxygen Delivery Room Air 01/23/25 08:00 01/23/25 08:00 01/23/25 08:00 Temperature 97.8 F Pulse Rate 82 60 Respiratory Rate 12 Blood Pressure 139/101 H Pulse Oximetry 98 Oxygen Delivery Room Air 01/23/25 10:00 01/23/25 12:00 01/23/25 12:00 Temperature 98.5 F Pulse Rate 67 72 72 Respiratory Rate 20 20 Blood Pressure 147/93 H Pulse Oximetry 93 93 Oxygen Delivery Room Air Intake/Output Intake/Output: Intake & Output 01/20/25 01/21/25 01/22/25 01/23/25 23:59 23:59 23:59 23:59 Intake Total 1060.6 370 Output Total 4300 Balance -3239.4 370 Meds/Results Medications: Active Medications Generic Name Dose Route Start Last Admin Trade Name Freq PRN Reason Stop Dose Admin Acetaminophen 650 mg 01/21/25 22:37 01/23/25 10:06 Acetaminophen 325 Mg Tablet PO 650 mg Q4H PRN Administration Mild Pain (1-3) or Fever Amlodipine Besylate 10 mg 01/22/25 09:00 01/23/25 10:07 Amlodipine Besylate 10 Mg Tablet PO 10 mg DAILY JAROD Administration Aspirin 81 mg 01/23/25 09:00 01/23/25 10:07 Aspirin 81 Mg Enteric Tablet PO Not Given QA JAROD Carvedilol 25 mg 01/22/25 09:00 01/23/25 10:07 Carvedilol 25 Mg Tablet PO 25 mg Q12HR JAROD Administration Enoxaparin Sodium 40 mg 01/22/25 09:00 01/23/25 10:06 Enoxaparin 40 Mg/0.4 Ml Syringe SUB-Q 40 mg Q12HR JAROD Administration Furosemide 40 mg 01/22/25 09:00 01/22/25 17:40 Furosemide Inj 40 Mg/4 Ml Vial IV PUSH 40 mg BID JAROD Administration Hydralazine HCl 20 mg 01/22/25 08:23 01/22/25 10:28 Hydralazine Hcl 20 Mg/Ml Vial IV PUSH 20 mg Q4H PRN Administration SBP more than 180 Hydralazine HCl 50 mg 01/22/25 18:00 01/23/25 12:20 Hydralazine Hcl 50 Mg Tablet PO 50 mg Q6HR JAROD Administration Labetalol HCl 20 mg 01/22/25 08:23 01/22/25 08:50 Labetalol Hcl Inj 100 Mg/20 Ml Vial IV PUSH 20 mg Q4H PRN Administration SBP > 180 - 1st choice Ondansetron HCl 4 mg 01/21/25 22:37 Ondansetron Inj 4 Mg/2 Ml Vial IV PUSH Q4H PRN Nausea Perflutren Lipid Microsphere 0 ml 01/22/25 11:55 Perflutren Lipid Microspheres 1.5 Ml Vial Diluted To 10 Ml Total Volume IV PUSH 01/25/25 11:55 ONCE PRN adequate visualization Protocol Radiology Results: ITS Impressions Chest X-Ray 01/23/25 07:17 IMPRESSION: 1. No acute cardiopulmonary disease. Arterial/Peripheral Duplex 01/23/25 09:49 IMPRESSION: 1. Normal kidneys with no hydronephrosis. 2. No Doppler evidence of renal artery stenosis. Renal Ultrasound 01/23/25 09:49 IMPRESSION: 1. Normal kidneys with no hydronephrosis. 2. No Doppler evidence of renal artery stenosis. Labs Labs: Laboratory Results - last 24 hr 01/23/25 01/23/25 01/23/25 04:22 12:32 12:33 WBC 10.3 H RBC 5.95 Hgb 13.9 L Hct 44.9 MCV 75.5 L MCH 23.4 L MCHC 31.0 L RDW 17.2 H Plt Count 289 MPV 11.3 H ESR 16 Sodium 140 Potassium 3.4 Chloride 101 Carbon Dioxide 28 Anion Gap 11 BUN 28 H Creatinine 2.55 H Estim Creat Clear Calc 52 Estimated GFR 28 L Glucose 98 Calcium 9.3 Phosphorus 4.0 Albumin 4.0 Urine Eosinophils None seen U Random Total Protein 90 Cancelled Ur Random Sodium 60 Ur Random Urea 1015 Urine Total Volume Cancelled Urine Creatinine 244.3 Cancelled Protein/Creat Ratio 2 0.37 H Complement C3 137 Complement C4 44.5 H Quality VTE Prophylaxis VTE prophylaxis: pharmacologic ordered
[2025-01-24] VITALS (12 sets, daily range): BP systolic 150–155; BP diastolic 85–107; PULSE 48–78; RESP 18; TEMP 36.4–37; O2SAT 99–100
[2025-01-24 05:53] LABS: Hemoglobin 13.6 g/dL (14.0-18.0); Mean Corpuscular HGB Conc 30.2 g/dl (32-36); Mean Corpuscular Hemoglobin 23.2 pg (26-34); Mean Corpuscular Volume 76.9 fl (80-100); Mean Platelet Volume 11.2 fl (7.4-10.4); Platelet Count Result 277 k/mm3 (150-375); Red Blood Count 5.85 M/mm3 (4.6-6.20); Red Cell Distribution Width 16.5 % (11.5-14.5); White Blood Count 9.9 K/mm3 (4.5-10.0)
[2025-01-24 06:07] LABS: Anion Gap 12 mmol/L (4-12); Blood Urea Nitrogen 35 mg/dL (9-20); Calcium 9.4 mg/dL (8.4-10.2); Carbon Dioxide 27 mmol/L (22-30); Chloride 100 mmol/L (98-107); Estimated CRCL calculation 47 ml/min; Estimated Glomerular Filt Rate 25; Glucose 103 mg/dL (65-110); Potassium 3.6 mmol/L (3.4-5.0); Sodium 139 mmol/L (137-145)
[2025-01-24] MEDS: hydrALAZINE HCL 50 MG TABLET PO ×2 (10:00→13:06)
[2025-01-24] MEDS: ASPIRIN 81 MG ENTERIC TABLET PO (10:01)
[2025-01-24] MEDS: carvediloL 25 MG TABLET PO (10:01)
[2025-01-24] MEDS: amLODIPine BESYLATE 10 MG TABLET PO (10:01)
[2025-01-24] MEDS: ENOXAPARIN 40 MG/0.4 ML SYRINGE SUB-Q ×2 (10:02→21:32)
[2025-01-24] MEDS: WATER FOR IRRIGATION, STERILE 500 ML BOTTLE (10:09)
--- NOTE | 2025-01-24 11:28 | P.PNCA_ITS ---
Progress Note: A&P Assessment and Plan (1) Hypertension: Code(s): I10 - Essential (primary) hypertension Status: Acute (2) Malignant hypertensive urgency: Code(s): I16.0 - Hypertensive urgency Status: Acute Plan 44-year-old man with significant hypertension with unfortunate renal insufficiency because of noncompliance. He has improved blood pressure as mentioned in my previous note with initiation of medical therapy. We are seeing episodes of asymptomatic two-to-one AV block while he is asleep. Almost certainly this has to do with obesity hypoventilation/sleep apnea. I would not abandon his beta-shelly because of this but I will reduce the dosage to 12.5 mg q.12 hours of carvedilol. He does not have any history of syncope and he would benefit from outpatient sleep lab study given the almost certain likelihood that this is the result of sleep apnea given his morbid obesity. Baldemar Mendoza MD [facility] Subjective Date/time seen: Date of service: 01/24/25 11:28 Interval history: Follow-up visit in this 44-year-old with longstanding hypertension with hypertensive emergency and evidence of hypertensive nephrosclerosis. Asked to see this patient again today because of two-to-one AV conduction noted on telemetry during sleeping. Exam Const: General: comfortable and no acute distress Other: Morbidly obese gentleman in no distress, sleeping with significant snoring HENMT: Mouth: Yes moist mucous membranes Eyes: Sclera: sclerae normal Neck: Neck: supple Resp: Effort & Inspection: normal respiratory effort Auscultation: clear to auscultation bilaterally Cardio: Rate: bradycardic Rhythm: regular rhythm GI: GI Palp: Yes Soft to palpation Auscultation: normal bowel sounds Skin: General skin exam: normal color Neuro: Other: Alert and oriented Objective Data Vital Signs Vital Signs: Vital Signs - 24 hr 01/23/25 12:00 01/23/25 12:00 01/23/25 12:00 Temperature 36.9 C Pulse Rate 72 72 57 L Respiratory Rate 20 20 Blood Pressure 147/93 H Pulse Oximetry 93 93 Oxygen Delivery Room Air Fraction of Inspired Oxygen 01/23/25 14:00 01/23/25 16:00 01/23/25 16:00 Temperature Pulse Rate 68 72 72 Respiratory Rate 12 Blood Pressure Pulse Oximetry 96 Oxygen Delivery Room Air Fraction of Inspired Oxygen 01/23/25 16:00 01/23/25 18:00 01/23/25 19:44 Temperature 37.1 C 36.6 C Pulse Rate 72 71 66 Respiratory Rate 12 18 Blood Pressure 120/82 147/98 H Pulse Oximetry 96 99 Oxygen Delivery Fraction of Inspired Oxygen 01/23/25 20:50 01/23/25 20:50 01/23/25 20:51 Temperature Pulse Rate 70 64 Respiratory Rate Blood Pressure Pulse Oximetry Oxygen Delivery Room Air Fraction of Inspired Oxygen 01/23/25 21:36 01/23/25 21:37 01/24/25 00:00 Temperature Pulse Rate 62 Respiratory Rate Blood Pressure Pulse Oximetry 99 Oxygen Delivery Autopap Room Air Fraction of Inspired Oxygen 21 01/24/25 00:38 01/24/25 04:00 01/24/25 05:51 Temperature 36.6 C Pulse Rate 66 73 Respiratory Rate 18 Blood Pressure 150/85 H Pulse Oximetry 100 Oxygen Delivery Autopap Fraction of Inspired Oxygen 01/24/25 08:34 01/24/25 10:01 Temperature Pulse Rate 74 Respiratory Rate Blood Pressure Pulse Oximetry 99 Oxygen Delivery Room Air Fraction of Inspired Oxygen 21 Intake/Output Intake/Output: Intake & Output 01/21/25 01/22/25 01/23/25 01/24/25 23:59 23:59 23:59 23:59 Intake Total 1060.6 1040 810 Output Total 4300 650 850 Balance -3239.4 390 -40 Meds/Results Medications: Active Medications Generic Name Dose Route Start Last Admin Trade Name Freq PRN Reason Stop Dose Admin Acetaminophen 650 mg 01/21/25 22:37 01/23/25 20:51 Acetaminophen 325 Mg Tablet PO 650 mg Q4H PRN Administration Mild Pain (1-3) or Fever Amlodipine Besylate 10 mg 01/22/25 09:00 01/24/25 10:01 Amlodipine Besylate 10 Mg Tablet PO 10 mg DAILY JAROD Administration Aspirin 81 mg 01/23/25 09:00 01/24/25 10:01 Aspirin 81 Mg Enteric Tablet PO 81 mg QAM JAROD Administration Carvedilol 25 mg 01/22/25 09:00 01/24/25 10:01 Carvedilol 25 Mg Tablet PO 25 mg Q12HR JAROD Administration Enoxaparin Sodium 40 mg 01/22/25 09:00 01/24/25 10:02 Enoxaparin 40 Mg/0.4 Ml Syringe SUB-Q 40 mg Q12HR JAROD Administration Furosemide 40 mg 01/22/25 09:00 01/22/25 17:40 Furosemide Inj 40 Mg/4 Ml Vial IV PUSH 40 mg BID JAROD Administration Hydralazine HCl 20 mg 01/22/25 08:23 01/22/25 10:28 Hydralazine Hcl 20 Mg/Ml Vial IV PUSH 20 mg Q4H PRN Administration SBP more than 180 Hydralazine HCl 50 mg 01/24/25 09:00 01/24/25 10:00 Hydralazine Hcl 50 Mg Tablet PO 50 mg Q8HR JAROD Administration Labetalol HCl 20 mg 01/22/25 08:23 01/22/25 08:50 Labetalol Hcl Inj 100 Mg/20 Ml Vial IV PUSH 20 mg Q4H PRN Administration SBP > 180 - 1st choice Ondansetron HCl 4 mg 01/21/25 22:37 Ondansetron Inj 4 Mg/2 Ml Vial IV PUSH Q4H PRN Nausea Perflutren Lipid Microsphere 0 ml 01/22/25 11:55 Perflutren Lipid Microspheres 1.5 Ml Vial Diluted To 10 Ml Total Volume IV PUSH 01/25/25 11:55 ONCE PRN adequate visualization Protocol Radiology Results: ITS Impressions Chest X-Ray 01/23/25 07:17 IMPRESSION: 1. No acute cardiopulmonary disease. Arterial/Peripheral Duplex 01/23/25 09:49 IMPRESSION: 1. Normal kidneys with no hydronephrosis. 2. No Doppler evidence of renal artery stenosis. Renal Ultrasound 01/23/25 09:49 IMPRESSION: 1. Normal kidneys with no hydronephrosis. 2. No Doppler evidence of renal artery stenosis. Labs Labs: Laboratory Results - last 24 hr 01/23/25 01/23/25 01/23/25 04:22 12:32 12:33 WBC RBC Hgb Hct MCV MCH MCHC RDW Plt Count MPV Sodium Potassium Chloride Carbon Dioxide Anion Gap BUN Creatinine Estim Creat Clear Calc Estimated GFR Glucose Calcium Total Protein 7.0 Urine Eosinophils None seen U Random Total Protein 90 Cancelled Ur Random Sodium 60 Ur Random Urea 1015 Urine Total Volume Cancelled Urine Creatinine 244.3 Cancelled Protein/Creat Ratio 2 0.37 H 01/24/25 05:19 WBC 9.9 RBC 5.85 Hgb 13.6 L Hct 45.0 MCV 76.9 L MCH 23.2 L MCHC 30.2 L RDW 16.5 H Plt Count 277 MPV 11.2 H Sodium 139 Potassium 3.6 Chloride 100 Carbon Dioxide 27 Anion Gap 12 BUN 35 H Creatinine 2.81 H Estim Creat Clear Calc 47 Estimated GFR 25 L Glucose 103 Calcium 9.4 Total Protein Urine Eosinophils U Random Total Protein Ur Random Sodium Ur Random Urea Urine Total Volume Urine Creatinine Protein/Creat Ratio 2
--- NOTE | 2025-01-24 11:37 | P.PNNP_ITS ---
Progress Note: A&P Assessment and Plan (1) Acute kidney injury: Code(s): N17.9 - Acute kidney failure, unspecified Status: Acute Assessment and Plan: * worsening since admission * possible due to overdiuresis versus overcontrol of blood pressure * systolic BP did drop as low as 120 systolic (on 01/23 afternoon) * evaluation to date noted: * renal ultrasound normal * no evidence of renal artery stenosis by renal duplex * urine electrolytes look prerenal (despite need for diuresis on admissionfor volume overload) * urine eosinophils negative * mild proteinuria * serologies pending * Echo reviewed * attempt to back off/place parameters on BP medications to allow BP to rise closer to 160 - 170 systolic * follow trend of repeat lab (2) Chronic kidney disease: Code(s): N18.9 - Chronic kidney disease, unspecified Status: Chronic Assessment and Plan: * patient reports an abnormal creatinine ~ a year ago during a previous hospitalization.... * [facility] 1.64[facility]/dl in March 2024 * creatinine 1.43mg/dl on January 2023 ([facility]) * given his poor BP control as noted on admission, I suspect an element/degree of CKD progression * follow trend of repeat labs and UOP (3) Hypertensive emergency: Code(s): I16.1 - Hypertensive emergency Status: Acute Assessment and Plan: * started on nicardipine infusion as unresponsive to IV push medications * BP has improved so that nicardipine infusion has beeb discontinued * started on oral Coreg, Norvasc, and hydralazine * on IV Lasix due to evidence of volume overload on presentation as well... * discontinued based on CXR results and rising creatinine * PRN labetalol and hydralazine to keep blood pressure < 190 systolic * would aim to keep systolic BP ~ 160 - 170 systolic to avoid overcontrol and associated renal hypoperfusion * follow trend of hemodynamics (4) Congestive heart failure: Code(s): I50.9 - Heart failure, unspecified Status: Acute Assessment and Plan: * as suggested by admission imaging/symptoms -- probably from uncontrolled hypertension * Cardiology recommendations noted * Echo results noted: * technically challenging exam because of obesity, definity contrast utilized * concentric LVH with mild LV enlargement and mildly reduced systolic function, estimated at 45 - 50% * grade 2 diastolic noncompliance * moderate left atrial enlargement * trivial aortic valve regurgitation * IV lasix on hold given rising creatinine * follow respiratory status (5) Obesity, morbid, BMI 50 or higher: Code(s): E66.01 - Morbid (severe) obesity due to excess calories Status: Acute Assessment and Plan: * maybe a contributing component to renal insufficiency * counseled on weight loss Will continue to follow. L Subjective Date/time seen: 01/24/25 11:37 Interval history: Follow-up for hypertensive urgency and renal insufficiency. No apparent distress noted at the time of my visit; renal function/creatinine worse by trend of labs on admission -- lasix on hold and carvedilol decreased by Cardiology due to issues with bradycardia; no other acute issues/events noted overnight or earlier this morning Exam 2 Narrative: General: large WD/WN male in NAD Heart: normal S1 and S2; no rub Lungs: clear anteriorly, slightly decreased at bases Abdomen: obses but soft, nontender, nondistended, positive bowel sounds Extremities: no cyanosis or clubbing; no edema Skin: warm and intact Objective Data Vital Signs Vital Signs: Vital Signs Temp Pulse Resp BP Pulse Ox O2 Del Method FiO2 01/24/25 10:01 74 01/24/25 08:34 99 Room Air 01/24/25 05:51 97.9 F 73 18 150/85 H 100 01/24/25 04:00 66 01/24/25 00:38 Autopap 01/24/25 00:00 62 01/23/25 21:37 99 Room Air 21 01/23/25 21:36 Autopap 01/23/25 20:51 64 01/23/25 20:50 70 01/23/25 20:50 Room Air 01/23/25 19:44 97.9 F 66 18 147/98 H 99 01/23/25 18:00 71 01/23/25 16:00 98.7 F 72 12 120/82 96 01/23/25 16:00 72 01/23/25 16:00 72 12 96 Room Air 01/23/25 14:00 68 Intake/Output Intake/Output: Intake & Output 01/21/25 01/22/25 01/23/25 01/24/25 23:59 23:59 23:59 23:59 Intake Total 1060.6 1040 810 Output Total 4300 650 850 Balance -3239.4 390 -40 Meds/Results Medications: Active Medications Generic Name Dose Route Start Last Admin Trade Name Freq PRN Reason Stop Dose Admin Acetaminophen 650 mg 01/21/25 22:37 01/23/25 20:51 Acetaminophen 325 Mg Tablet PO 650 mg Q4H PRN Administration Mild Pain (1-3) or Fever Amlodipine Besylate 10 mg 01/22/25 09:00 01/24/25 10:01 Amlodipine Besylate 10 Mg Tablet PO 10 mg DAILY JAROD Administration Aspirin 81 mg 01/23/25 09:00 01/24/25 10:01 Aspirin 81 Mg Enteric Tablet PO 81 mg QAM JAROD Administration Carvedilol 12.5 mg 01/24/25 21:00 Carvedilol 12.5 Mg Tablet PO Q12HR JAROD Enoxaparin Sodium 40 mg 01/22/25 09:00 01/24/25 10:02 Enoxaparin 40 Mg/0.4 Ml Syringe SUB-Q 40 mg Q12HR JAROD Administration Furosemide 40 mg 01/22/25 09:00 01/22/25 17:40 Furosemide Inj 40 Mg/4 Ml Vial IV PUSH 40 mg BID JAROD Administration Hydralazine HCl 20 mg 01/22/25 08:23 01/22/25 10:28 Hydralazine Hcl 20 Mg/Ml Vial IV PUSH 20 mg Q4H PRN Administration SBP more than 180 Hydralazine HCl 50 mg 01/24/25 09:00 01/24/25 10:00 Hydralazine Hcl 50 Mg Tablet PO 50 mg Q8HR JAROD Administration Labetalol HCl 20 mg 01/22/25 08:23 01/22/25 08:50 Labetalol Hcl Inj 100 Mg/20 Ml Vial IV PUSH 20 mg Q4H PRN Administration SBP > 180 - 1st choice Ondansetron HCl 4 mg 01/21/25 22:37 Ondansetron Inj 4 Mg/2 Ml Vial IV PUSH Q4H PRN Nausea Perflutren Lipid Microsphere 0 ml 01/22/25 11:55 Perflutren Lipid Microspheres 1.5 Ml Vial Diluted To 10 Ml Total Volume IV PUSH 01/25/25 11:55 ONCE PRN adequate visualization Protocol Radiology Results: ITS Impressions Chest X-Ray 01/23/25 07:17 IMPRESSION: 1. No acute cardiopulmonary disease. Arterial/Peripheral Duplex 01/23/25 09:49 IMPRESSION: 1. Normal kidneys with no hydronephrosis. 2. No Doppler evidence of renal artery stenosis. Renal Ultrasound 01/23/25 09:49 IMPRESSION: 1. Normal kidneys with no hydronephrosis. 2. No Doppler evidence of renal artery stenosis. Labs Labs: Laboratory Tests 01/24/25 05:19 01/24/25 05:19 Calcium 9.4
--- NOTE | 2025-01-24 13:01 | P.PNIM_ITS ---
Progress Note: A&P Assessment and Plan (1) Hypertensive emergency: Code(s): I16.1 - Hypertensive emergency Status: Acute Assessment and Plan: Patient presented with elevated blood pressure and was started on nicardipine infusion. Pressure has improved to a point that nicardipine infusion was discontinued. Continue Coreg, Norvasc Lasix on hold with worsening kidney function Continue p.r.n. labetalol and hydralazine (2) Elevated troponin: Code(s): R79.89 - Other specified abnormal findings of blood chemistry Status: Acute Assessment and Plan: Mildly elevated troponin in setting of uncontrolled blood pressure and elevated creatinine. Patient denies any chest pain Continue aspirin (3) Obesity, morbid, BMI 50 or higher: Code(s): E66.01 - Morbid (severe) obesity due to excess calories Status: Acute Assessment and Plan: Patient is morbidly obese and was counseled for weight loss (4) Elevated serum creatinine: Code(s): R79.89 - Other specified abnormal findings of blood chemistry Status: Acute Assessment and Plan: AK versus BAL CKD Kidney ultrasound unremarkable Hold of Lasix Nephrology team on board (5) Congestive heart failure: Code(s): I50.9 - Heart failure, unspecified Status: Acute Assessment and Plan: HFrEF Patient exhibiting symptoms and signs of congestive heart failure likely from uncontrolled hypertension Check echocardiogram showed grade 2 diastolic dysfunction and ejection fraction 45-50% IV Lasix on hold with worsening kidney function Cardiac team on board (6) Bradycardia: Code(s): R00.1 - Bradycardia, unspecified Status: Acute Assessment and Plan: Mobitz type 2 insetting of obesity and possible Nicki, hypoventilation syndrome Decrease Coreg to 12.5 bID cardiology team on board Plan DVT prophylaxis -Lovenox Nutrition -heart healthy Code Status - Full Code Subjective Date/time seen: 01/24/25 13:01 Interval history: per HPi: 44-year-old male with a past medical history of morbid obesity, essential hypertension and nonadherence to medication therapy who presented to the ER from [facility] for evaluation of dry cough and markedly elevated blood pressure at urgent care. The patient reports that he has been out of medications for ?a few weeks?. On review the patient's external medication records from pharmacy the patient has not had refill of his metoprolol, losartan, Lasix or amlodipine since March 26, 2024 at which time he had a 30 day supply filled. On arrival to the ER the patient's blood pressures were 217/150s. Patient denies any chest pain or lower extremity swelling. He has been having dyspnea on exertion and orthopnea. He he also reports paroxysmal nocturnal dyspnea and a dry cough at all started about 6 weeks ago. He does snore quite loudly and since admission to the ICU is been noted to have episodes of hypoxia with sleep. He has noticed that his abdomen is felt tighter than usual. He has had a dry nonproductive cough. He reports that his cough dyspnea and orthopnea all started about the same time. He reports that his losartan was discontinued shortly after was started due to his renal function. He reports that 1 of the other blood pressure medications was stopped due to leg swelling. She he states that even with being on multiple blood pressure medications in the past his blood pre ssures are usually still high. He stated that he does not check his blood pressures all that frequently but when he does check them as they are usually in the 180s systolic range. He does not weigh is self frequently but his weight is at least up 10 lb between his last to episodes weight checks. He is relatively sedentary at baseline. In the ER patient received hydralazine with no real improvement in his blood pressure. He subsequently received 40 mg IV Lasix, labetalol 20 mg IV push and transdermal nitroglycerin 1 in with improvement in blood pressures to 199 over 133. Subsequently patient was placed on a Cardene drip and admitted to ICU for hypertensive urgency given the fact that the patient had evidence of acute versus acute on chronic kidney injury, elevated troponin and pulmonary edema suggesting decompensated heart failure. 01/23/25 Patient initially was admitted to ICU for blood pressure management. Blood pressure well under better control and patient was transferred to the step-down unit. Patient was seen and examined at bedside. He is feeling fine. Denies any chest pain, shortness off breath, abdominal pain, nausea vomiting. Patient had episode of Mobitz 2 overnight. Discussed with patient to follow-up with sleep study as outpatient. Kidney function getting worse. Will hold of Lasix today. Nephrology team on board. Renal ultrasound unremarkable 01/24/25 Patient was seen and examined at bedside. He is feeling fine. Denies any chest pain, shortness off breath, abdominal pain, nausea vomiting. Kidney function getting worse. Continue to hold diuretics. Follow Nephrology recommendation. Patient has bradycardia. Possible Mobitz type 2. Discussed with cardiology team. Coreg decreased to 12.5 patient needs outpatient sleep study Review of Systems Review of Systems: 12 systems were reviewed with pertinent positives and negatives per HPI. Except as documented in the HPI, all other systems were reviewed and are negative. All systems reviewed & are unremarkable except as noted in HPI and below (HPI) Exam Narrative: General: Pt is alert awake and in NAD Lungs/Chest: Trachea central Clear BS B/L, No crackles or wheezing. Breath sounds are decreased at bases Cardiac: RRR. Normal S1 S2. No murmurs Circulation: Pedal pulses are intact and symmetrical. Abdomen: Morbidly obese Normal bowel sounds.. Soft. NT. ND. Extremities: Mild pitting edema in both legs : Clay in place Neurologic: Follows commands. Moves all 4 extremities PERRL AO x3 Skin: No Rash Const: Other: No acute distress, morbidly obese, appears stated age HENMT: Other: Mucous membranes are moist, no oral pharyngeal erythema, last for ASA Eyes: Other: Pupils are equal and reactive, mild scleral icterus, no conjunctival pallor Neck: Other: No JVD, mild thyromegaly, large neck circumference Resp: Other: Crackles anterior lung green, no increased work of breathing Cardio: Other: Regular rate, regular rhythm, 2+ bilateral radial pedal pulses, no JVD, no murmur GI: Other: Soft, obese, normoactive bowel sounds, nontender Skin: Other: Tattoos covering both arms and is sleeve like fashion, no jaundice, no pallor Neuro: Other: Alert oriented x4, speech is clear, no facial asymmetry, no localizing neurologic deficits noted during the course of conversation Extrem: Other: No clubbing, cyanosis or edema Psych: Other: Pleasant and cooperative, appropriate mood and affect, fair judgment and insight Objective Data Vital Signs Vital Signs: Vital Signs - 24 hr 01/23/25 14:00 01/23/25 16:00 01/23/25 16:00 Temperature Pulse Rate 68 72 72 Respiratory Rate 12 Blood Pressure Pulse Oximetry 96 Oxygen Delivery Room Air Fraction of Inspired Oxygen 01/23/25 16:00 01/23/25 18:00 01/23/25 19:44 Temperature 98.7 F 97.9 F Pulse Rate 72 71 66 Respiratory Rate 12 18 Blood Pressure 120/82 147/98 H Pulse Oximetry 96 99 Oxygen Delivery Fraction of Inspired Oxygen 01/23/25 20:50 01/23/25 20:50 01/23/25 20:51 Temperature Pulse Rate 70 64 Respiratory Rate Blood Pressure Pulse Oximetry Oxygen Delivery Room Air Fraction of Inspired Oxygen 01/23/25 21:36 01/23/25 21:37 01/24/25 00:00 Temperature Pulse Rate 62 Respiratory Rate Blood Pressure Pulse Oximetry 99 Oxygen Delivery Autopap Room Air Fraction of Inspired Oxygen 21 01/24/25 00:38 01/24/25 04:00 01/24/25 05:51 Temperature 97.9 F Pulse Rate 66 73 Respiratory Rate 18 Blood Pressure 150/85 H Pulse Oximetry 100 Oxygen Delivery Autopap Fraction of Inspired Oxygen 01/24/25 08:34 01/24/25 10:01 Temperature Pulse Rate 74 Respiratory Rate Blood Pressure Pulse Oximetry 99 Oxygen Delivery Room Air Fraction of Inspired Oxygen 21 Intake/Output Intake/Output: Intake & Output 01/21/25 01/22/25 01/23/25 01/24/25 23:59 23:59 23:59 23:59 Intake Total 1060.6 1040 810 Output Total 4300 650 850 Balance -3239.4 390 -40 Meds/Results Medications: Active Medications Generic Name Dose Route Start Last Admin Trade Name Freq PRN Reason Stop Dose Admin Acetaminophen 650 mg 01/21/25 22:37 01/23/25 20:51 Acetaminophen 325 Mg Tablet PO 650 mg Q4H PRN Administration Mild Pain (1-3) or Fever Amlodipine Besylate 10 mg 01/22/25 09:00 01/24/25 10:01 Amlodipine Besylate 10 Mg Tablet PO 10 mg DAILY JAROD Administration Aspirin 81 mg 01/23/25 09:00 01/24/25 10:01 Aspirin 81 Mg Enteric Tablet PO 81 mg QAM JAROD Administration Carvedilol 12.5 mg 01/24/25 21:00 Carvedilol 12.5 Mg Tablet PO Q12HR JAROD Enoxaparin Sodium 40 mg 01/22/25 09:00 01/24/25 10:02 Enoxaparin 40 Mg/0.4 Ml Syringe SUB-Q 40 mg Q12HR JAROD Administration Furosemide 40 mg 01/22/25 09:00 01/22/25 17:40 Furosemide Inj 40 Mg/4 Ml Vial IV PUSH 40 mg BID JAROD Administration Hydralazine HCl 20 mg 01/22/25 08:23 01/22/25 10:28 Hydralazine Hcl 20 Mg/Ml Vial IV PUSH 20 mg Q4H PRN Administration SBP more than 180 Hydralazine HCl 50 mg 01/24/25 09:00 01/24/25 10:00 Hydralazine Hcl 50 Mg Tablet PO 50 mg Q8HR JAROD Administration Labetalol HCl 20 mg 01/22/25 08:23 01/22/25 08:50 Labetalol Hcl Inj 100 Mg/20 Ml Vial IV PUSH 20 mg Q4H PRN Administration SBP > 180 - 1st choice Ondansetron HCl 4 mg 01/21/25 22:37 Ondansetron Inj 4 Mg/2 Ml Vial IV PUSH Q4H PRN Nausea Perflutren Lipid Microsphere 0 ml 01/22/25 11:55 Perflutren Lipid Microspheres 1.5 Ml Vial Diluted To 10 Ml Total Volume IV PUSH 01/25/25 11:55 ONCE PRN adequate visualization Protocol Radiology Results: ITS Impressions Chest X-Ray 01/23/25 07:17 IMPRESSION: 1. No acute cardiopulmonary disease. Arterial/Peripheral Duplex 01/23/25 09:49 IMPRESSION: 1. Normal kidneys with no hydronephrosis. 2. No Doppler evidence of renal artery stenosis. Renal Ultrasound 01/23/25 09:49 IMPRESSION: 1. Normal kidneys with no hydronephrosis. 2. No Doppler evidence of renal artery stenosis. Labs Labs: Laboratory Results - last 24 hr 01/23/25 01/23/25 01/23/25 04:22 12:32 12:33 WBC RBC Hgb Hct MCV MCH MCHC RDW Plt Count MPV Sodium Potassium Chloride Carbon Dioxide Anion Gap BUN Creatinine Estim Creat Clear Calc Estimated GFR Glucose Calcium Total Protein 7.0 Urine Eosinophils None seen U Random Total Protein 90 Ur Random Sodium 60 Ur Random Urea 1015 Urine Creatinine 244.3 Protein/Creat Ratio 2 0.37 H 01/24/25 05:19 WBC 9.9 RBC 5.85 Hgb 13.6 L Hct 45.0 MCV 76.9 L MCH 23.2 L MCHC 30.2 L RDW 16.5 H Plt Count 277 MPV 11.2 H Sodium 139 Potassium 3.6 Chloride 100 Carbon Dioxide 27 Anion Gap 12 BUN 35 H Creatinine 2.81 H Estim Creat Clear Calc 47 Estimated GFR 25 L Glucose 103 Calcium 9.4 Total Protein Urine Eosinophils U Random Total Protein Ur Random Sodium Ur Random Urea Urine Creatinine Protein/Creat Ratio 2 Quality VTE Prophylaxis VTE prophylaxis: pharmacologic ordered
[2025-01-24] MEDS: allopurinoL 300 MG TABLET PO (15:52)
[2025-01-24] MEDS: hydrALAZINE HCL 25 MG TABLET PO (21:32)
[2025-01-24] MEDS: HYDROcodone/acetaminophen (*CRX) 5-325 MG TABLET 1 TAB PO (22:26)
[2025-01-25] VITALS: PULSE 70
--- NOTE | 2025-01-25 00:18 | PC.NURSE ---
At time of assessment pt c/o pain to left foot rt gout flare up. Left foot noted to be red and swollen. Pt states he believes flare up began due to BP medication that he has received here. Pt educated on the side effects of each BP medication that he has received during this stay. Educated pt that none of the medications state on their description that they cause uric acid levels to increase or gout to be increased. Pt did a quick search online on medications as well and determined that carvedilol might be the cause of gout flare up. Pt decided to refuse carvedilol for tonight. Provider made aware of pt's decision. Medication non-administered in OCT. Hydralazine PO still given tonight for BP control.
[2025-01-25 04:00] VITALS: PULSE 66
[2025-01-25 06:00] VITALS: BP 159/112; PULSE 79; RESP 18; TEMP 36.8; O2SAT 94
[2025-01-25 06:54] LABS: Albumin Level 4.1 g/dL (3.5-5.1); Anion Gap 9 mmol/L (4-12); Blood Urea Nitrogen 34 mg/dL (9-20); Calcium 9.2 mg/dL (8.4-10.2); Carbon Dioxide 29 mmol/L (22-30); Chloride 100 mmol/L (98-107); Estimated CRCL calculation 51 ml/min; Estimated Glomerular Filt Rate 27; Glucose 103 mg/dL (65-110); Phosphorus 4.6 mg/dL (2.5-4.5); Potassium 3.7 mmol/L (3.4-5.0); Sodium 138 mmol/L (137-145); Uric Acid 11.9 mg/dL (3.5-8.5)
[2025-01-25 09:00] VITALS: BP 142/93
[2025-01-25] MEDS: ASPIRIN 81 MG ENTERIC TABLET PO (09:33)
[2025-01-25] MEDS: allopurinoL 300 MG TABLET PO (09:33)
[2025-01-25] MEDS: hydrALAZINE HCL 25 MG TABLET PO (09:33)
[2025-01-25] MEDS: amLODIPine BESYLATE 10 MG TABLET PO (09:33)
[2025-01-25] MEDS: ENOXAPARIN 40 MG/0.4 ML SYRINGE SUB-Q (09:37)
--- NOTE | 2025-01-25 10:45 | PM.PNNEP ---
Progress Note: A&P Assessment and Plan (1) Acute kidney injury: Code(s): N17.9 - Acute kidney failure, unspecified Status: Acute Assessment and Plan: improvement noted today possible due to overdiuresis versus overcontrol of blood pressure systolic BP did drop as low as 120 systolic (on 01/23 afternoon) evaluation to date noted: renal ultrasound normal no evidence of renal artery stenosis by renal duplex urine electrolytes look prerenal (despite need for diuresis on admissionfor volume overload) urine eosinophils negative mild proteinuria serologies pending Echo reviewed attempt to back off/place parameters on BP medications to allow BP to rise closer to 160 - 170 systolic follow trend of repeat lab (2) Chronic kidney disease: Code(s): N18.9 - Chronic kidney disease, unspecified Status: Chronic Assessment and Plan: patient reports an abnormal creatinine ~ a year ago during a previous hospitalization.... from review of his MyChart records, creatinine was 1.64mg/dl in March 2024 creatinine 1.43mg/dl on January 2023 ([facility]) given his poor BP control as noted on admission, I suspect an element/degree of CKD progression follow trend of repeat labs and UOP (3) Hypertensive emergency: Code(s): I16.1 - Hypertensive emergency Status: Acute Assessment and Plan: started on nicardipine infusion as unresponsive to IV push medications BP has improved so that nicardipine infusion has beeb discontinued started on oral Coreg, Norvasc, and hydralazine on IV Lasix due to evidence of volume overload on presentation as well... discontinued based on CXR results and rising creatinine PRN labetalol and hydralazine to keep blood pressure < 190 systolic would aim to keep systolic BP ~ 160 - 170 systolic to avoid overcontrol and associated renal hypoperfusion follow trend of hemodynamics (4) Congestive heart failure: Code(s): I50.9 - Heart failure, unspecified Status: Acute Assessment and Plan: as suggested by admission imaging/symptoms -- probably from uncontrolled hypertension Cardiology recommendations noted Echo results noted: technically challenging exam because of obesity, definity contrast utilized concentric LVH with mild LV enlargement and mildly reduced systolic function, estimated at 45 - 50% grade 2 diastolic noncompliance moderate left atrial enlargement trivial aortic valve regurgitation IV lasix on hold given rising creatinine follow respiratory status (5) Gout attack: Code(s): M10.9 - Gout, unspecified Status: Acute Assessment and Plan: elevated uric acid noted might benefit from course of steroids had been on allopurinol in the past (6) Obesity, morbid, BMI 50 or higher: Code(s): E66.01 - Morbid (severe) obesity due to excess calories Status: Acute Assessment and Plan: maybe a contributing component to renal insufficiency counseled on weight loss Will continue to follow. Subjective Date/time seen: 01/25/25 10:45 Interval history: Follow-up for hypertensive urgency and renal insufficiency. Apparent gout flare that started last night but doing better this morning; blood pressure under reasonable control and renal function stabilizing if not improving; no other acute issues/events overnight or earlier this morning. Exam Narrative: General: large WD/WN male in NAD Heart: normal S1 and S2; no rub Lungs: clear anteriorly, slightly decreased at bases Abdomen: obses but soft, nontender, nondistended, positive bowel sounds Extremities: no cyanosis or clubbing; no edema Skin: no rash or nodules Objective Data Vital Signs Vital Signs: Vital Signs Temp Pulse Resp BP Pulse Ox O2 Del Method 01/25/25 09:00 142/93 H 01/25/25 06:00 98.3 F 79 18 159/112 H 94 01/25/25 04:00 66 01/25/25 00:00 70 01/24/25 22:27 69 01/24/25 21:21 Room Air 01/24/25 21:11 98.6 F 69 18 150/107 H 100 01/24/25 20:00 78 01/24/25 18:33 97.5 F L 67 18 155/89 H 100 01/24/25 16:00 61 Intake/Output Intake/Output: Intake & Output 01/22/25 01/23/25 01/24/25 01/25/25 23:59 23:59 23:59 23:59 Intake Total 1060.6 1040 1720 240 Output Total 4300 650 850 800 Balance -3239.4 390 870 -560 Meds/Results Medications: Active Medications Generic Name Dose Route Start Trade Name Freq PRN Reason Stop Acetaminophen 650 mg 01/21/25 22:37 Acetaminophen 325 Mg Tablet PO Q4H PRN Mild Pain (1-3) or Fever Amlodipine Besylate 10 mg 01/22/25 09:00 Amlodipine Besylate 10 Mg Tablet PO DAILY [facility] Aspirin 81 mg 01/23/25 09:00 Aspirin 81 Mg Enteric Tablet PO QAM [facility] Carvedilol 12.5 mg 01/24/25 21:00 Carvedilol 12.5 Mg Tablet PO Q12HR [facility] Enoxaparin Sodium 40 mg 01/22/25 09:00 Enoxaparin 40 Mg/0.4 Ml Syringe SUB-Q Q12HR [facility] Furosemide 40 mg 01/22/25 09:00 Furosemide Inj 40 Mg/4 Ml Vial IV PUSH BID JAROD Hydralazine HCl 20 mg 01/22/25 08:23 Hydralazine Hcl 20 Mg/Ml Vial IV PUSH Q4H PRN SBP more than 180 Hydralazine HCl 50 mg 01/24/25 09:00 Hydralazine Hcl 25 Mg Tablet PO BID [facility] Labetalol HCl 20 mg 01/22/25 08:23 Labetalol Hcl Inj 100 Mg/20 Ml Vial IV PUSH Q4H PRN SBP > 180 - 1st choice Ondansetron HCl 4 mg 01/21/25 22:37 Ondansetron Inj 4 Mg/2 Ml Vial IV PUSH Q4H PRN Nausea Perflutren Lipid Microsphere 0 ml 01/22/25 11:55 Perflutren Lipid Microspheres 1.5 Ml Vial Diluted To 10 Ml Total Volume IV PUSH 01/25/25 11:55 ONCE PRN adequate visualization Protocol Radiology Results: ITS Impressions Chest X-Ray 01/23/25 07:17 IMPRESSION: 1. No acute cardiopulmonary disease. Arterial/Peripheral Duplex 01/23/25 09:49 IMPRESSION: 1. Normal kidneys with no hydronephrosis. 2. No Doppler evidence of renal artery stenosis. Renal Ultrasound 01/23/25 09:49 IMPRESSION: 1. Normal kidneys with no hydronephrosis. 2. No Doppler evidence of renal artery stenosis. Labs Labs: Laboratory Tests 01/24/25 05:19 01/25/25 06:32 Uric Acid 11.9 H Calcium 9.2 Phosphorus 4.6 H Albumin 4.1
--- NOTE | 2025-01-25 10:45 | P.PNNP_ITS ---
Progress Note: A&P Assessment and Plan (1) Acute kidney injury: Code(s): N17.9 - Acute kidney failure, unspecified Status: Acute Assessment and Plan: * improvement noted today * possible due to overdiuresis versus overcontrol of blood pressure * systolic BP did drop as low as 120 systolic (on 01/23 afternoon) * evaluation to date noted: * renal ultrasound normal * no evidence of renal artery stenosis by renal duplex * urine electrolytes look prerenal (despite need for diuresis on admissionfor volume overload) * urine eosinophils negative * mild proteinuria * serologies pending * Echo reviewed * attempt to back off/place parameters on BP medications to allow BP to rise closer to 160 - 170 systolic * follow trend of repeat lab (2) Chronic kidney disease: Code(s): N18.9 - Chronic kidney disease, unspecified Status: Chronic Assessment and Plan: * patient reports an abnormal creatinine ~ a year ago during a previous hospitalization.... * [facility] 1.64[facility]/dl in March 2024 * creatinine 1.43mg/dl on January 2023 ([facility]) * given his poor BP control as noted on admission, I suspect an element/degree of CKD progression * follow trend of repeat labs and UOP (3) Hypertensive emergency: Code(s): I16.1 - Hypertensive emergency Status: Acute Assessment and Plan: * started on nicardipine infusion as unresponsive to IV push medications * BP has improved so that nicardipine infusion has beeb discontinued * started on oral Coreg, Norvasc, and hydralazine * on IV Lasix due to evidence of volume overload on presentation as well... * discontinued based on CXR results and rising creatinine * PRN labetalol and hydralazine to keep blood pressure < 190 systolic * would aim to keep systolic BP ~ 160 - 170 systolic to avoid overcontrol and associated renal hypoperfusion * follow trend of hemodynamics (4) Congestive heart failure: Code(s): I50.9 - Heart failure, unspecified Status: Acute Assessment and Plan: * as suggested by admission imaging/symptoms -- probably from uncontrolled hypertension * Cardiology recommendations noted * Echo results noted: * technically challenging exam because of obesity, definity contrast utilized * concentric LVH with mild LV enlargement and mildly reduced systolic function, estimated at 45 - 50% * grade 2 diastolic noncompliance * moderate left atrial enlargement * trivial aortic valve regurgitation * IV lasix on hold given rising creatinine * follow respiratory status (5) Gout attack: Code(s): M10.9 - Gout, unspecified Status: Acute Assessment and Plan: * elevated uric acid noted * might benefit from course of steroids * had been on allopurinol in the past (6) Obesity, morbid, BMI 50 or higher: Code(s): E66.01 - Morbid (severe) obesity due to excess calories Status: Acute Assessment and Plan: * maybe a contributing component to renal insufficiency * counseled on weight loss Will continue to follow. L Subjective Date/time seen: 01/25/25 10:45 Interval history: Follow-up for hypertensive urgency and renal insufficiency. Apparent gout flare that started last night but doing better this morning; blood pressure under reasonable control and renal function stabilizing if not improving; no other acute issues/events overnight or earlier this morning. Exam 2 Narrative: General: large WD/WN male in NAD Heart: normal S1 and S2; no rub Lungs: clear anteriorly, slightly decreased at bases Abdomen: obses but soft, nontender, nondistended, positive bowel sounds Extremities: no cyanosis or clubbing; no edema Skin: no rash or nodules Objective Data Vital Signs Vital Signs: Vital Signs Temp Pulse Resp BP Pulse Ox O2 Del Method 01/25/25 09:00 142/93 H 01/25/25 06:00 98.3 F 79 18 159/112 H 94 01/25/25 04:00 66 01/25/25 00:00 70 01/24/25 22:27 69 01/24/25 21:21 Room Air 01/24/25 21:11 98.6 F 69 18 150/107 H 100 01/24/25 20:00 78 01/24/25 18:33 97.5 F L 67 18 155/89 H 100 01/24/25 16:00 61 Intake/Output Intake/Output: Intake & Output 01/22/25 01/23/25 01/24/25 01/25/25 23:59 23:59 23:59 23:59 Intake Total 1060.6 1040 1720 240 Output Total 4300 650 850 800 Balance -3239.4 390 870 -560 Meds/Results Medications: Active Medications Generic Name Dose Route Start Trade Name Freq PRN Reason Stop Acetaminophen 650 mg 01/21/25 22:37 Acetaminophen 325 Mg Tablet PO Q4H PRN Mild Pain (1-3) or Fever Amlodipine Besylate 10 mg 01/22/25 09:00 Amlodipine Besylate 10 Mg Tablet PO DAILY [facility] Aspirin 81 mg 01/23/25 09:00 Aspirin 81 Mg Enteric Tablet PO QAM [facility] Carvedilol 12.5 mg 01/24/25 21:00 Carvedilol 12.5 Mg Tablet PO Q12HR [facility] Enoxaparin Sodium 40 mg 01/22/25 09:00 Enoxaparin 40 Mg/0.4 Ml Syringe SUB-Q Q12HR [facility] Furosemide 40 mg 01/22/25 09:00 Furosemide Inj 40 Mg/4 Ml Vial IV PUSH BID [facility] Hydralazine HCl 20 mg 01/22/25 08:23 Hydralazine Hcl 20 Mg/Ml Vial IV PUSH Q4H PRN SBP more than 180 Hydralazine HCl 50 mg 01/24/25 09:00 Hydralazine Hcl 25 Mg Tablet PO BID [facility] Labetalol HCl 20 mg 01/22/25 08:23 Labetalol Hcl Inj 100 Mg/20 Ml Vial IV PUSH Q4H PRN SBP > 180 - 1st choice Ondansetron HCl 4 mg 01/21/25 22:37 Ondansetron Inj 4 Mg/2 Ml Vial IV PUSH Q4H PRN Nausea Perflutren Lipid Microsphere 0 ml 01/22/25 11:55 Perflutren Lipid Microspheres 1.5 Ml Vial Diluted To 10 Ml Total Volume IV PUSH 01/25/25 11:55 ONCE PRN adequate visualization Protocol Radiology Results: ITS Impressions Chest X-Ray 01/23/25 07:17 IMPRESSION: 1. No acute cardiopulmonary disease. Arterial/Peripheral Duplex 01/23/25 09:49 IMPRESSION: 1. Normal kidneys with no hydronephrosis. 2. No Doppler evidence of renal artery stenosis. Renal Ultrasound 01/23/25 09:49 IMPRESSION: 1. Normal kidneys with no hydronephrosis. 2. No Doppler evidence of renal artery stenosis. Labs Labs: Laboratory Tests 01/24/25 05:19 01/25/25 06:32 Uric Acid 11.9 H Calcium 9.2 Phosphorus 4.6 H Albumin 4.1
--- NOTE | 2025-01-25 12:24 | PM.DS ---
DS: Admitting Diagnosis Discharge Date 01/25/25 Admitting Diagnosis HTN/BAL DS: Discharge Diagnosis Discharge Diagnosis (1) Hypertensive emergency: Code(s): I16.1 - Hypertensive emergency Status: Acute Assessment and Plan: Patient presented with elevated blood pressure and was started on nicardipine infusion. Pressure has improved to a point that nicardipine infusion was discontinued. Continue Coreg, Norvasc Lasix on hold with worsening kidney function (2) Elevated troponin: Code(s): R79.89 - Other specified abnormal findings of blood chemistry Status: Acute Assessment and Plan: Mildly elevated troponin in setting of uncontrolled blood pressure and elevated creatinine. Patient denies any chest pain Continue aspirin (3) Obesity, morbid, BMI 50 or higher: Code(s): E66.01 - Morbid (severe) obesity due to excess calories Status: Acute Assessment and Plan: Patient is morbidly obese and was counseled for weight loss (4) Elevated serum creatinine: Code(s): R79.89 - Other specified abnormal findings of blood chemistry Status: Acute Assessment and Plan: AK versus BAL CKD Improving Kidney ultrasound unremarkable Hold of Lasix Nephrology team on board (5) Congestive heart failure: Code(s): I50.9 - Heart failure, unspecified Status: Acute Assessment and Plan: HFrEF Patient exhibiting symptoms and signs of congestive heart failure likely from uncontrolled hypertension echocardiogram showed grade 2 diastolic dysfunction and ejection fraction 45-50% Cardiac team on board (6) Bradycardia: Code(s): R00.1 - Bradycardia, unspecified Status: Acute Assessment and Plan: Mobitz type 2 insetting of obesity and possible Nicki, hypoventilation syndrome Decrease Coreg to 12.5 bID cardiology team on board Plan DVT prophylaxis -Lovenox Nutrition -heart healthy Code Status - Full Code DS: Summary Hospital Course Hospital Course: per HPi: 44-year-old male with a past medical history of morbid obesity, essential hypertension and nonadherence to medication therapy who presented to the ER from [facility] for evaluation of dry cough and markedly elevated blood pressure at urgent care. The patient reports that he has been out of medications for ?a few weeks?. On review the patient's external medication records from pharmacy the patient has not had refill of his metoprolol, losartan, Lasix or amlodipine since March 26, 2024 at which time he had a 30 day supply filled. On arrival to the ER the patient's blood pressures were 217/150s. Patient denies any chest pain or lower extremity swelling. He has been having dyspnea on exertion and orthopnea. He he also reports paroxysmal nocturnal dyspnea and a dry cough at all started about 6 weeks ago. He does snore quite loudly and since admission to the ICU is been noted to have episodes of hypoxia with sleep. He has noticed that his abdomen is felt tighter than usual. He has had a dry nonproductive cough. He reports that his cough dyspnea and orthopnea all started about the same time. He reports that his losartan was discontinued shortly after was started due to his renal function. He reports that 1 of the other blood pressure medications was stopped due to leg swelling. She he states that even with being on multiple blood pressure medications in the past his blood pressures are usually still high. He stated that he does not check his blood pressures all that frequently but when he does check them as they are usually in the 180s systolic range. He does not weigh is self frequently but his weight is at least up 10 lb between his last to episodes weight checks. He is relatively sedentary at baseline. In the ER patient received hydralazine with no real improvement in his blood pressure. He subsequently received 40 mg IV Lasix, labetalol 20 mg IV push and transdermal nitroglycerin 1 in with improvement in blood pressures to 199 over 133. Subsequently patient was placed on a Cardene drip and admitted to ICU for hypertensive urgency given the fact that the patient had evidence of acute versus acute on chronic kidney injury, elevated troponin and pulmonary edema suggesting decompensated heart failure. 01/23/25 Patient initially was admitted to ICU for blood pressure management. Blood pressure well under better control and patient was transferred to the step-down unit. Patient was seen and examined at bedside. He is feeling fine. Denies any chest pain, shortness off breath, abdominal pain, nausea vomiting. Patient had episode of Mobitz 2 overnight. Discussed with patient to follow-up with sleep study as outpatient. Kidney function getting worse. Will hold of Lasix today. Nephrology team on board. Renal ultrasound unremarkable 01/24/25 Kidney function getting worse. Continue to hold diuretics. Follow Nephrology recommendation. Patient has bradycardia. Possible Mobitz type 2. Discussed with cardiology team. Coreg decreased to 12.5 patient needs outpatient sleep study 01/25/25 Patient was seen and examined at bedside. He is feeling fine. Denies any chest pain, shortness off breath, abdominal pain, nausea vomiting.complain of L foot pain which is gout flare and is better with resuming Allopurinol. he is feeling better and requesting to be discharged. Status at Discharge Overall status at discharge: patient is progressing back to baseline Time Spent with Patient Time attestation: Total time spent providing and/or coordinating discharge services: Time spent: Greater than 30 minutes Exam Narrative: General: Pt is alert awake and in NAD Lungs/Chest: Trachea central Clear BS B/L, No crackles or wheezing. Breath sounds are decreased at bases Cardiac: RRR. Normal S1 S2. No murmurs Circulation: Pedal pulses are intact and symmetrical. Abdomen: Morbidly obese Normal bowel sounds.. Soft. NT. ND. Extremities: Mild pitting edema in both legs : Clay in place Neurologic: Follows commands. Moves all 4 extremities PERRL AO x3 Skin: No Rash Const: Other: No acute distress, morbidly obese, appears stated age HENMT: Other: Mucous membranes are moist, no oral pharyngeal erythema, last for ASA Eyes: Other: Pupils are equal and reactive, mild scleral icterus, no conjunctival pallor Neck: Other: No JVD, mild thyromegaly, large neck circumference Resp: Other: Crackles anterior lung green, no increased work of breathing Cardio: Other: Regular rate, regular rhythm, 2+ bilateral radial pedal pulses, no JVD, no murmur GI: Other: Soft, obese, normoactive bowel sounds, nontender Skin: Other: Tattoos covering both arms and is sleeve like fashion, no jaundice, no pallor Neuro: Other: Alert oriented x4, speech is clear, no facial asymmetry, no localizing neurologic deficits noted during the course of conversation Extrem: Other: No clubbing, cyanosis or edema Psych: Other: Pleasant and cooperative, appropriate mood and affect, fair judgment and insight DS: Data Data Completed and Pending Labs on day of discharge: Labs from last 24 hours 01/25/25 06:32 Sodium 138 Potassium 3.7 Chloride 100 Carbon Dioxide 29 Anion Gap 9 BUN 34 H Creatinine 2.61 H Estim Creat Clear Calc 51 Estimated GFR 27 L Glucose 103 Uric Acid 11.9 H Calcium 9.2 Phosphorus 4.6 H Albumin 4.1 Discharge Plan Discharge Attending physician on discharge: Imani Izquierdo Consulting providers: Leodan Coyne; Terry Villegas; Geno Richards; Rut Laurent; Kishor Alex Discharging Clinician: Imani Izquierdo Anticipated Discharge Date/Time: 01/25/25 12:39 Patient Disposition: Home Activity: as tolerated Diet: heart healthy Discharge Instructions: check your blood pressure and heart rate regularly and report to PCP follow with cardiology and nephrology as outpatient. 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 [Primary Care Provider] - 1 Week Rut Laurent MD [Physician] - Call for Appointment Discharge Medications: New hydrocodone-acetaminophen 5-325 mg Tablet 1 tablet PO Q6H PRN (Reason: Pain Rated 4-6) Qty: 15 0RF aspirin 81 mg Tablet,Delayed Release (Dr/Ec) 81 mg PO QAM Qty: 30 0RF prednisone 20 mg Tablet 40 mg PO DAILY@0800 Qty: 8 0RF hydralazine 50 mg Tablet 50 mg PO Q8HR Qty: 60 0RF carvedilol [Coreg] 12.5 mg Tablet 12.5 mg PO Q12HR Qty: 60 0RF hydralazine 25 mg Tablet 25 mg PO Q12HR Qty: 60 0RF Continued amlodipine 10 mg tablet 10 mg PO DAILY rosuvastatin 10 mg tablet 10 mg PO DAILY allopurinol 300 mg tablet 300 mg PO DAILY Discontinued doxycycline hyclate 100 mg capsule 100 mg PO Q12H Patient Comments: take for 10 days Date of admission: 01/22/25 01:24 Primary Care Provider: PHYSICIAN,[employer]LE DIGGER TRUCK DRIVER Admitting Provider: Sydni Palacios Attending physician on admission: Imani Izquierdo Condition: Stable Quality VTE Prophylaxis VTE prophylaxis: pharmacologic ordered
[2025-01-25 13:43] LABS: Kappa\\Lambda Light Chains 1.96 (0.26-1.65)
[2025-01-26 01:54] LABS: Creatinine, Random Urine 231 mg/dL (20-320); Total Prot/Creat ratio mg/mg 0.342 (0.025-0.148); Total Protein/Creatinine Ratio 342 mg/g creat (25-148)
[2025-01-26 08:49] LABS: Abnormal Protein Band 1 0.2 g/dL (NONE DETECTED); Albumin 3.7 g/dL (3.8-4.8); Alpha 1 Globulin 0.3 g/dL (0.2-0.3); Alpha 2 Globulin 0.8 g/dL (0.5-0.9); Beta 1 Globulin 0.4 g/dL (0.4-0.6); Gamma Globulin 1.3 g/dL (0.8-1.7)
[2025-01-27 13:38] LABS: Anti Glomerular Basement Memb <1.0 AI
[2025-01-28 08:49] LABS: ANCA Screen NEGATIVE (NEGATIVE)
== END 2025-01-25 13:50 | disposition home or self-care (01) | DRG 304 ==
LOC: ANHED 20:45 → ANHICU 23:46 → ANHIMU 01-22 18:34 → ANH3MED 01-23 18:28
PROVIDERS: Internal Medicine Nephrology; Admitting Provider Internal Medicine; Emergency Provider Emergency Medicine; Visit Provider Internal Medicine
DX: I16.0 Hypertensive urgency (principal); I50.21 Acute systolic (congestive) heart failure; N17.9 Acute kidney failure, unspecified; Z68.43 Body mass index [BMI] 50.0-59.9, adult; I13.0 Hypertensive heart and chronic kidney disease with heart failure and stage 1 through stage 4 chronic kidney disease, or unspecified chronic kidney disease; I44.1 Atrioventricular block, second degree; N18.9 Chronic kidney disease, unspecified; R00.1 Bradycardia, unspecified; E78.5 Hyperlipidemia, unspecified; E66.01 Morbid (severe) obesity due to excess calories; M10.9 Gout, unspecified; Z20.822 Contact with and (suspected) exposure to COVID-19; Z91.148 Patient's other noncompliance with medication regimen for other reason
CPT/HCPCS: 36415; 71045; 71046; 76775; 80048; 80053; 80061; 80069; 81001; 82570; 83520; 83735; 83880; 83883; 84155; 84156; 84165; 84166; 84300; 84443; 84484; 84540; 84550; 85025; 85027; 85652; 85999; 86036; 86038; 86039; 86160; 86225; 87637; 87641; 93005; 93976; 96374; 96375; 99285; A9270; C8929; G0378; J0360; J1650; J1938; J2404; Q9957